=== PATIENT | male | born 1940 | race Caucasian/White ===

== ENCOUNTER 2025-02-11 08:23 | Inpatient (IN) | payer MEDICARE, SELFPAY ==
--- OUTSIDE RECORDS SUMMARY | 2023-10-21 09:30 | XMS_ITS ---
Author Organization [facility] [place] Address [address] [facility] [address] [place] [address] Care Team Providers Care Combatant Diver Qualified Name Role Phone Migration, Provider Unavailable Unavailable REASON FOR VISIT Follow-up Appt Encounters Encounter Location Date Provider Diagnosis [facility], [address] [place] [phone] 10/21/2023 Provider Migration Plan Of Treatment No Information Progress Notes * NATO MIRANDA ODOB:1940 (84 yo M)Acc No.[id number]:10/21/2023 Progress Notes Patient: NATO SHER Provider: Barron Patel :1940 A ge:83 Y S ex:Male Date:10/21/2023 [id number] Subjective: * Chief Complaints: * F ollow-up Appt * Ocular Surgical History: Objective: Vision Examination: * Electronic signature of Prov ider Migration on 02/11/2025 at 09:45 AM EST Sign off status: Pending * Provider: Barron Patel Date: 0 10/21/2023 Generated for Amayai todd/Rakesh/eTransmitting on: 04/13/2024 09:45 AM EST
--- OUTSIDE RECORDS SUMMARY | 2023-11-03 09:00 | XMS_ITS ---
Author Organization [facility] [place] Address [address] [address] [facility] [address] [place] [address] Care Team Providers Care Bpo Specialist Name Role Phone Migration, Provider Unavailable Unavailable REASON FOR VISIT Sick Visit Encounters Encounter Location Date Provider Diagnosis [facility], [address] [address] 11/03/2023 Provider Migration Plan Of Treatment No Information Progress Notes * NATO MIRANDA ODOB:1940 (84 yo M)Acc No.[id number]:11/03/2023 Progress Notes Patient: NATO SHER Provider: Barron Patel :1940 A ge:83 Y S ex:Male Date:11/03/2023 Address:[id number] Subjective: * Chief Complaints: * S ick Visit * Ocular Surgical History: Objective: Vision Examination: * Electronic signature of Prov ider Migration on 02/11/2025 at 09:42 AM EST Sign off status: Pending * Provider: Barron Patel Date: 0 11/03/2023 Generated for Amayai todd/Rakesh/eTransmitting on: 04/13/2024 09:42 AM EST
--- OUTSIDE RECORDS SUMMARY | 2024-01-15 09:30 | XMS_ITS ---
Author Organization [facility] [place] Address [address] [place] [address] Care Team Providers Care Pipe Layer Helper Name Role Phone Migration, Provider Unavailable Unavailable REASON FOR VISIT Pre operative visit Encounters Encounter Location Date Provider Diagnosis [facility], [address] [address] 01/15/2024 Provider Migration Plan Of Treatment No Information Progress Notes * NATO MIRANDA ODOB:1940 (84 yo M)Acc No.[id number]:01/15/2024 Progress Notes Patient: NATO SHER Provider: Barron de la torre Migration :1940 A ge:83 Y S ex:Male Date:01/15/2024 Address:[id number] Subjective: * Chief Complaints: * P re operative visit * Ocular Surgical History: Objective: Vision Examination: * Electronic signature of Prov ider Migration on 02/11/2025 at 09:45 AM EST Sign off status: Pending * Provider: Barron de la torre Migration Date: Generated for Gabo brooks/Rakesh/eTransmitting on: 04/13/2024 09:45 AM EST
--- OUTSIDE RECORDS SUMMARY | 2024-05-13 04:45 | XMS_ITS ---
Author Organization [facility] [place] Address [address] [place] [address] Care Team Providers Care Child Nutrition Assistant Name Role Phone Jack Campos Unavailable [phone] REASON FOR VISIT Pre operative visit Encounters Encounter Location Date Provider Diagnosis [facility], [address] [place] [phone] 05/13/2024 Jack Campos Plan Of Treatment No Information Progress Notes * NATO MIRANDA ODOB:1940 (84 yo M)Acc No.[id number]:05/13/2024 Progress Notes Patient: NATO SHER Provider: Valentina MCKEON :1940 A ge:84 Y S ex:Male Date:05/13/2024 Address:[id number] Subjective: * Chief Complaints: * P re operative visit * Ocular Surgical History: Objective: Vision Examination: * Electronic signature of Thad Campos PA-C on 02/11/2025 at 09:45 AM EST Sign off status: Pending * Provider: Valentina MCKEON Date: 0 05/13/2024 Generated for Gabo brooks/Rakesh/Meenuitting on: 1 04/13/2024 09:45 AM EST
--- OUTSIDE RECORDS SUMMARY | 2024-05-13 04:45 | XMS_ITS ---
Author Organization [facility] [place] Address [address] [facility] [address] [place] [address] Care Team Providers Care Furnace Repairer Name Role Phone Migration, Provider Unavailable Unavailable REASON FOR VISIT Pre operative visit Encounters Encounter Location Date Provider Diagnosis [facility], [address] [place] [phone] 05/13/2024 Provider Migration Plan Of Treatment No Information Progress Notes * NATO MIRANDA ODOB:1940 (84 yo M)Acc No.[id number]:05/13/2024 Progress Notes Patient: NATO SHER Provider: Barron de la torre Migration :1940 A ge:84 Y S ex:Male Date:05/13/2024 Address:[id number] Subjective: * Chief Complaints: * P re operative visit * Ocular Surgical History: Objective: Vision Examination: * Electronic signature of Prov ider Migration on 02/11/2025 at 09:43 AM EST Sign off status: Pending * Provider: Barron osorioder Migration Date: 0 05/13/2024 Generated for Gabo brooks/Rakesh/eTransmitting on: 1 04/13/2024 09:43 AM EST
--- OUTSIDE RECORDS SUMMARY | 2024-05-19 10:00 | XMS_ITS ---
Author Organization [facility] [place] Address [address] [address] [place] [address] Care Team Providers Care Bus Aide Name Role Phone Jack Campos Unavailable [phone] REASON FOR VISIT Pre operative visit Encounters Encounter Location Date Provider Diagnosis [facility], [address] [place] [phone] 05/19/2024 Jack Campos Plan Of Treatment No Information Progress Notes * NATO MIRANDA ODOB:1940 (84 yo M)Acc No.[id number]:05/19/2024 Progress Notes Patient: NATO SHER Provider: Valentina MCKEON :1940 A ge:84 Y S ex:Male Date:05/19/2024 Address:[id number] Subjective: * Chief Complaints: * P re operative visit * Ocular Surgical History: Objective: Vision Examination: * Electronic signature of Thad Campos PA-C on 02/11/2025 at 09:44 AM EST Sign off status: Pending * Provider: Valentina MCKEON Date: 0 05/19/2024 Generated for Gabo brooks/Rakesh/Meenuitting on: 04/13/2024 09:44 AM EST
[2025-02-11] VITALS (8 sets, daily range): BP systolic 139–189; BP diastolic 63–86; PULSE 50–65; RESP 16–18; TEMP 36.4–36.9; O2SAT 92–98; BMI 23.7
--- NOTE | ~2025-02-11 | XR_ITS ---
EXAMINATION: XR CHEST CLINICAL INFORMATION: sob COMPARISON: None available. TECHNIQUE: Frontal view of the chest was obtained. FINDINGS: Pulmonary reticular pattern. Prominence of the interstitial markings with patchy opacities both lungs. No pneumothorax. No pleural effusion. Cardiomediastinal silhouette size is prominent. Single electrode leads likely in the right ventricle. Metallic reservoir in the left upper chest. Multilevel thoracic and upper lumbar spondylosis. XR/XR chest 1V IMPRESSION: Chronic interstitial lung disease with superimposed mild interstitial lung edema versus multifocal pneumonia. Cardiomegaly versus pericardial effusion. Electronically signed by: Campbell Clayton MD 02/11/2025 09:03 AM NICHOLE
--- NOTE | ~2025-02-11 | CT_ITS ---
EXAMINATION: CT ANGIOGRAM CHEST CLINICAL INFORMATION: Shortness of breath. COMPARISON: None available. TECHNIQUE: Multiple axial images were obtained through the chest after the administration of 65 mL of Omnipaque 350 intravenous contrast. Extensive vascular post-processing including two-dimensional and three-dimensional reformatted images were created and reviewed on an independent workstation. SmartPrep technique. This CT examination was performed using dose optimization techniques as appropriate, variously including the following: *Automated exposure control *Adjustment of mA and/or kV according to patient size (this includes techniques or standardized protocols for targeted exams where dose is matched to indication/reason for exam; i.e. extremities or head) *Use of iterative reconstruction technique DLP: 299 mGy-cm FINDINGS: Normal IV contrast enhancement of the main pulmonary artery and its main left and right branches and small subsegmental pulmonary branches without gross intraluminal filling defects. No gross aneurysm, thoracic spine. There is a 4.1 cm diameter of the ascending thoracic aorta. Calcified plaques in the thoracic aorta wall and its main branches. Calcified plaques in the coronary arteries. Bilateral multifocal patchy pulmonary groundglass extending from the perihilar region with a mosaic pattern. Bilateral pleural effusions, moderate volume, right greater than the left side. No pneumothorax. There is a 5 mm noncalcified pulmonary nodule in the periphery of the right upper lung lobe. There is a cluster of patchy pulmonary groundglass nodules in the right upper lung lobe. There is a 3 mm noncalcified subpleural nodule, left upper lung lobe. Peribronchial septal thickening. The left heart chambers are prominent, mostly the left atrium. Mediastinal lymphadenopathy the largest measures 14 mm. No pericardial effusion. There is a single electrode leads in the right ventricle with a metallic reservoir in the anterior left upper chest wall. No pneumomediastinum. No secretions within the airway. No acute rib fractures. Status post stenting infrarenal abdominal aortic aneurysm. Calcified plaques in the abdominal aorta and the included mesenteric arteries. Calcified plaque in the splenic artery. Gallbladder is nondistended. Cystic lesions in the kidneys. Multilevel spondylosis throughout the axial skeleton with the incomplete ankylosis in the anterior aspect of the upper thoracic spine. The thyroid gland is not enlarged. CT/CT angio chest PE protocol IMPRESSION: No acute pulmonary artery emboli. Combination of pulmonary edema with the multifocal pneumonia and bilateral moderate volume pleural effusions. Concerning mitral valve insufficiency resulting in dilated left atrium and left ventricle. 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 Multifocal cystic lesions, kidney. Coronary artery disease and atherosclerosis disease. Fleischner guidelines were followed. Electronically signed by: Campbell Clayton MD 02/11/2025 10:33 AM NICHOLE
--- NOTE | 2025-02-11 07:00 | CA_ITS ---
Transthoracic Echocardiogram Patient (Last, First, Middle): Brian Juan, Gender: Male Date of : 1940 Age: 84 Procedure Date: 02/11/2025 Procedure Type: Transthoracic Echocardiogram Location: ER Height: 187.96 cm Weight: 83.46 kg BSA: 2.10 m2 Heart Rate: 56 bpm BP: 143 / 66 mmHg Quality Control Lead: NICOLE Calderon MD: Tiesha MCKEON Pyridine Operator: Joe Lemons MD Symptoms: CHF Study Quality: Adequate ECG Rhythm: Bradycardia Conclusions: - 1. Mildly dilated left ventricle with mild left ventricular hypertrophy with moderate to severely reduced LV ejection fraction of 30-35% with elevated filling pressures 2. Severely dilated left atrium 3. Early mild aortic stenosis 4. Mildly dilated ascending aorta at 3.8 cm 5. No gross pericardial effusion Findings Left Ventricle Mildly increased left ventricular cavity size. There is mildly increased left ventricular wall thickness. The left ventricular systolic function is moderate to severely decreased. The visually estimated ejection fraction is between 30-35%. Spectral Doppler is indicative of an impaired relaxation filling pattern. Elevated filling pressures. E/E prime ratio is >15, consistent with elevated filling pressures. Wall Motion Rest Echo Findings The inferoseptal wall and inferior wall are hypokinetic. The inferolateral wall is akinetic. All other scored wall segments showed normal motion. Right Ventricle Normal right ventricular cavity size and systolic function. There is an ICD wire seen in the right ventricle. Atria The left atrium is severely dilated. There is no evidence of interatrial shunt. The right atrium is mildly dilated. Aortic Valve The aortic valve was not well visualized. There is no aortic valve stenosis. The peak aortic gradient is 11 mmHg.The mean gradient is 5 mmHg. The aortic valve area is 2.25 cm2. There is no aortic valve regurgitation. Mitral Valve There is mild anterior and posterior mitral leaflet thickening. There is mild mitral valve regurgitation. There is no mitral valve stenosis. Pulmonic Valve The pulmonic valve is likely normal. Tricuspid Valve Likely normal tricuspid valve structure and function. Tricuspid regurgitation envelope is inadequate for calculation of right ventricular systolic pressure. Normal right atrial pressure. Great Vessels The pulmonary artery was not well visualized. There is mild dilatation of the ascending aorta measuring 3.80 cm. Small plaque is seen in the sino tubular ridge. Venous The inferior vena cava is normal in size and collapses greater than 50% with inspiration. Pericardium/Pleural There is no evidence of pericardial effusion. Prior Study Comparison No prior study available for comparison. Measurements 2D Linear Measurements IVSd: 1.52 0.6-0.9/0.6-1.0 cm LVIDd: 6.12 3.9-5.3/4.2-5.9 cm LVIDd Index: 2.91 2.4-3.2/2.2-3.1 cm/m2 LVIDs: 5.46 2.0-3.6 cm LVPWd: 1.24 0.7-1.1 cm LA Diam: 4.00 2.7-3.8/3.0-4.0 cm LAIDs Index: 1.90 1.5-2.3 cm/m2 LV Mass: 489.85 67-162/88-224 g LV Mass Index: 233.26 43-95/49-115 g/m2 LVOT Diam: 2.20 3.0+(-)1.3 cm 2D Systolic Function EF 4C: 31.50 >55% EF 2C: 30.80 >55% EF BiP: 30.00 >55% Mitral Valve MV Pk E: 0.81 MV PK A: 0.78 MV Decel Time: 370.00 E/A: 1.00 E'Lateral: 4.68 E'Medial: 4.03 E/E' Med: 20.20 E/E' Lat: 17.40 PHT: 108.00 MVA PHT: 2.04 Decel Clarke: 2.20 Aortic Valve AoV Pk Honorio: 1.63 AoV Mn Honorio: 1.04 AoV VTI: 0.35 AoV Pk Grad: 11.00 Aov Mn Grad: 5.00 BRANDY Cont.VTI: 2.25 LVOT LVOT Pk Honorio: 0.98 LVOT Mn Honorio: 0.66 LVOT VTI: 0.21 LVOT Pk Grad: 4.00 LVOT Mn Grad: 2.00 LVOT Diam: 2.20 LVOT Area: 3.80 Diastolic Function MV Pk E: 0.81 MV Pk A: 0.78 E/A: 1.00 E'Medial: 4.03 E/E' Med: 20.20 E' Laterial: 4.68 E/E' Lat: 17.40 Right Ventricle TAPSE (mm): 2.39 TVS' Honorio: 16.10 Tricuspid Valve RA Press: 3.00 Great Vessels Aorta Sinus of Valsalva: 3.50 2.0-3.5 cm Ao Asc: 3.80 2.1-3.4 cm Ao Arch: 3.50 Pulmonary Veins Pulm Vein S/D 1.10 Pulmonary Valve PV Pk Honorio: 1.33 Peak PV Grad: 7.00 Updated in Other Vendor System with Status of Final Joe Lemons MD electronically signed on 02/11/2025 3:53:17 PM with status of Final
--- NOTE | 2025-02-11 08:34 | ED.GENADULT ---
HPI - General Adult General Chief complaint: General Medical Stated complaint: Sob Time Seen by Provider: 02/11/25 08:38 Source: patient and EMS Mode of arrival: EMS Limitations: no limitations History of Present Illness ED Provider: MIKE Dunn HPI narrative: This is an 84-year-old male past medical history significant for anxiety presenting to the emergency department with complaints of shortness of breath that started upon waking. Denies associated chest pain. Patient tells me he is not sure why but when he woke up this morning he was having difficulty taking a deep breath. He reports he then started to panic. He does tell me he has a lot of life stressors his is very sick at a long-term and he is now living by himself in his his daughter recently . He tells me he is very upset and he is tearful upon history taking. He denies fevers, chills, recent illness, cough, nausea, vomiting, abdominal pain, headache, vision changes, dizziness and weakness. Related Data Home Medications ?Medication ?Instructions ?Recorded ?Confirmed dorzolamide 22.3 mg-timolol 6.8 1 drp BID 02/11/25 mg/mL eye drops fluticasone propionate 50 1 spray intranasal BID 02/11/25 mcg/actuation nasal spray,suspension lactulose 10 gram/15 mL oral 30 ml PO DAILY 02/11/25 solution latanoprost 0.005 % eye drops 1 drp ophthalmic-Left DAILY 02/11/25 lisinopril 20 mg tablet 20 mg PO BID 02/11/25 metoprolol tartrate 100 mg tablet PO 02/11/25 mexiletine 200 mg capsule 200 mg PO BID 02/11/25 zolpidem 5 mg tablet 5 mg PO BEDTIME PRN Sleep 02/11/25 Allergies Allergy/AdvReac Type Severity Reaction Status Date / Time No Known Allergies Allergy Verified 02/11/25 08:45 Review of Systems Review of Systems: Yes all other systems are reviewed and are negative PMFSH Past Medical History Attestation statement: The following information was validated with the patient. Source: old records reviewed and nursing notes reviewed Social History Social History Advance Directives: Yes Advance Directives Information Provided: Yes Advance Directives on File: No Do you have a plan to hurt others: No Plan Physical Exam ED Exam Exam: Appearance: Alert.? Oriented X3.? No acute distress.? Head: Normocephalic, atraumatic, no step-offs or deformities Eyes: Pupils equal, round and reactive to light.? ENT: Pharynx normal.? Neck: Normal inspection.? Neck supple.? CVS: Normal heart rate and rhythm.? Pulses normal.? Respiratory: No respiratory distress.? Breath sounds normal.? Abdomen: Soft and nontender.? Skin: Skin warm and dry.? Normal skin color.? Normal skin turgor.? Extremities: No lower extremity edema.? No calf ttp. 5/5 strength to bilateral upper and lower extremities Neuro: Oriented X 3.? No motor deficit.? No sensory deficit. CN 2-12 intact Vital Signs: Vital Signs - 24 hr 02/11/25 08:35 02/11/25 10:22 Temperature 98 F Pulse Rate 65 60 Respiratory Rate 18 16 Blood Pressure 189/86 H 161/71 H Pulse Oximetry 95 92 Oxygen Delivery Method Nasal Cannula Room Air BMI result Body Mass Index 23.7 Vital signs stable Course Reevaluation(s) Reevaluation #1: Patient's CBC with leukocytosis 12.6 and left shift 81.0. Chemistry with no acute findings eating intervention. Troponin 61.5, pro BNP elevated 2520.5. Viral testing negative Time: 09:28 Reevaluation #2: Patient's chest x-ray shows chronic interstitial lung disease with superimposed mild interstitial lung edema versus multifocal pneumonia. Since patient had a positive D-dimer a CTA was obtained which showed no acute pulmonary artery emboli. Combination of pulmonary edema with multifocal pneumonia and bilateral moderate volume pleural effusions. Concerning mitral valve insufficiency resulting in dilated left atrium and left ventricle I will give a small amount of Lasix at this time. Time: 10:42 Reevaluation #3: Plan is hospital admission. Time: 10:45 Medications Administered Discontinued Medications Generic Name Dose Route Start Last Admin Trade Name Freq PRN Reason Stop Dose Admin Furosemide 20 mg 02/11/25 10:42 02/11/25 11:08 Furosemide 20 Mg/2 Ml Vial IVPUSH 02/11/25 10:43 20 mg ONCE ONE Administration Protocol Ceftriaxone Sodium 1 gm/ 50 mls @ 100 mls/hr 02/11/25 09:26 02/11/25 10:14 Sodium Chloride IV 02/11/25 09:55 Infused ONCE ONE Infusion Iohexol 100 ml 02/11/25 10:15 02/11/25 10:16 Iohexol 350 Mg/Ml 100 Ml Infus..Btl IV 02/11/25 10:16 65 ml ONCE ONE Administration Lorazepam 1 mg 02/11/25 08:30 02/11/25 08:52 Lorazepam 1 Mg Tablet PO 02/11/25 08:31 1 mg ONCE ONE Administration Medical Decision Making Medical Decision Making [facility] Narrative: 84-year-old male presents with complaints of shortness of breath that started this morning. Then he reports he started to panic. Reports multiple life stressors. Physical exam patient appears anxious otherwise unremarkable History and physical exam concerning for panic attack versus anxiety versus ACS. Will rule out dysrhythmia. Low suspicion for PE. Unlikely pneumonia, bronchitis or viral illness. Plan labs, imaging, viral testing. Will have patient evaluated by care team. Differential Diagnosis Differential Diagnoses: The differential diagnosis associated with the presentation includes (History and physical exam concerning for panic attack versus anxiety versus ACS. Will rule out dysrhythmia. Low suspicion for PE. Unlikely pneumonia, bronchitis or viral illness.) Admission/Observation Consideration of admission/observation: Escalation of care including admission/observation considered Consult Healthcare Provider Management of the patient was discussed with: Grants Director Lab Data [facility] Lab Attestation statement: I reviewed the patient's lab results. 02/11/25 08:48 02/11/25 08:48 Labs: Lab Results 02/11/25 02/11/25 02/11/25 Range/Units 08:48 09:58 10:49 WBC 12.6 H (4.8-10.8) X10*3/uL RBC 3.01 L (4.60-5.80) X10*6/uL Hgb 11.8 L (14.0-18.0) g/dl Hct 35.0 L (42.0-52.0) % MCV 116.3 H (80.0-98.0) fL MCH 39.2 H (27.0-33.0) pg MCHC 33.7 (31.0-36.0) g/dl RDW 17.1 H (11.0-16.0) % Plt Count 281 (160-400) X10*3/uL MPV 9.8 (9.4-12.4) fL Immature Gran % (Auto) 1.3 H (0.0-0.4) % Neut % (Auto) 81.0 H (45-73) % Lymph % (Auto) 6.8 L (20-40) % [place] % (Auto) 9.0 (2-11) % Eos % (Auto) 1.3 (0-4) % Baso % (Auto) 0.6 (0-2) % Lymph # (Auto) 0.9 L (1.2-4.9) X10*3/uL [place] # (Auto) 1.1 (0.1-1.2) X10*3/uL Eos # (Auto) 0.2 (0.0-0.4) X10*3/uL Baso # (Auto) 0.1 (0.0-0.2) X10*3/uL Abs Immat Gran (auto) 0.16 H (0.00-0.03) X10*3/uL Absolute Neuts (auto) 10.2 H (2.0-8.3) x10*3/uL Absolute Nucleated RBC 0.000 (0.0-0.012) X10*3/uL Nucleated RBC % (auto) 0.0 (0.0-0.2) /100WBC Smear Tech's Comments VERIFIED D-Dimer High Sensitivty 350 NG/ML Sodium 143 (135-145) mmol/L Potassium 4.6 (3.3-5.1) mmol/L Chloride 111 H (96-108) mmol/L Carbon Dioxide 25 (22-29) mmol/L Anion Gap 12 (12-20) BUN 18 H (9-16) mg/dL Creatinine 1.19 (0.5-1.4) mg/dL Estim Creat Clear Calc 53.7 Estimated GFR 58 Random Glucose 141 H (60-115) mg/dL Lactic Acid 1.6 (0.5-2.0) mmol/L Calcium 8.9 (8.4-10.2) mg/dL Magnesium 1.9 (1.6-2.6) mg/dL Total Bilirubin 0.8 (0.0-1.0) mg/dL AST 27 (5-37) U/L ALT 25 (0-40) U/L Alkaline Phosphatase 69 (39-117) U/L Troponin I High Sens 61.5 H 56.1 H (<3.5-35.0) ng/L NT-Pro-B Natriuret Pep 2520.5 H (<300) pg/mL Total Protein 6.6 (6.5-8.0) g/dL Albumin 4.4 (3.5-5.0) g/dL COVID-19 (HALEY) Negative (Negative) COVID-19 Clin Com See Note Influenza Type A (EMMETT) Negative (Negative) Influenza Type B (EMMETT) Negative (Negative) Influenza A & B Note See Note Independent Interpretation I performed an independent interpretation of an: EKG (Ventricular rate of 58 sinus rhythm with inverted T-waves in the inferior leads, left ventricular hypertrophy noted. No STEMI) and Plain X-Ray Radiology Impression Discussion of test interpretation with radiology: I have reviewed the radiologist's reading. Chronic Conditions Patient?s care impacted by: Other (See HPI and) Social Determinants Patient?s care significantly limited by Social Determinants of Health including: Other Social Determinant of Health Critical Care Time Critical Care Time Critical Care Time: Yes Total Critical Care Time: 35 Attestation: I attest to this time spent taking care of the patient, obtaining history, physical, reviewing labs, imaging, treatment of patients condition +/- specialist/hospitalist consult +/- procedure Discharge Plan Discharge Clinical Impression: Pneumonia, Shortness of breath, Grief at loss of child, Acute depression, CHF (congestive heart failure) Patient Disposition: Admitted As Inpatient
[2025-02-11 08:58] LABS: Hematocrit 35.0 % (42.0-52.0); Hemoglobin 11.8 g/dl (14.0-18.0); Imm Gran Abs Auto 0.16 X10*3/uL (0.00-0.03); Imm Gran Pct Auto 1.3 % (0.0-0.4); Lymphocytes Absolute Auto 0.9 X10*3/uL (1.2-4.9); Mean Corpuscular HGB Conc 33.7 g/dl (31.0-36.0); Mean Corpuscular Hemoglobin 39.2 pg (27.0-33.0); NRBC Abs Auto 0.000 X10*3/uL (0.0-0.012); NRBC Pct Auto 0.0 /100WBC (0.0-0.2); Platelet Count 281 X10*3/uL (160-400); Red Blood Count 3.01 X10*6/uL (4.60-5.80); White Blood Count 12.6 X10*3/uL (4.8-10.8)
[2025-02-11 09:00] LABS: Mean Corpuscular Volume 116.3 fL (80.0-98.0)
[2025-02-11 09:02] LABS: MANUAL DIFF FLAG SCAN
[2025-02-11 09:12] LABS: Alanine Aminotransferase 25 U/L (0-40); Albumin Level 4.4 g/dL (3.5-5.0); Alkaline Phosphatase 69 U/L (39-117); Anion Gap 12 (12-20); Aspartate Amino Transferase 27 U/L (5-37); Blood Urea Nitrogen 18 mg/dL (9-16); Calcium 8.9 mg/dL (8.4-10.2); Carbon Dioxide 25 mmol/L (22-29); Chloride 111 mmol/L (96-108); Creatinine Clr Calc Pharmacy 53.7; D Dimer High Sensitivity 350 NG/ML; Estimated Glomerular Filt Rate 58; Magnesium 1.9 mg/dL (1.6-2.6); Potassium 4.6 mmol/L (3.3-5.1); Sodium 143 mmol/L (135-145); Total Protein 6.6 g/dL (6.5-8.0)
[2025-02-11 09:13] LABS: COVID-19 Test Negative (Negative); IDNOW Serial# 55D5AD1C; IDNOW Serial# 58CA691E; Influenza B2 Negative (Negative)
[2025-02-11 09:16] LABS: Troponin-I High Sensitivity 61.5 ng/L (<3.5-35.0)
--- NOTE | 2025-02-11 09:28 | ECG_ITS ---
Test Reason : SOB Blood Pressure : */* mmHG Vent. Rate : 58 BPM Atrial Rate : 58 BPM P-R Int : 208 ms QRS Dur : 124 ms QT Int : 424 ms P-R-T Axes : 110 -11 155 degrees QTcB Int : 416 ms Sinus bradycardia Left ventricular hypertrophy with QRS widening and repolarization abnormality ( Sokolow-Maher ) Possible Inferior infarct , age undetermined Abnormal ECG No previous ECGs available Referred By: Clarisa Dunn Electronically Signed By: NEVILLE MARTINEZ MD
--- OUTSIDE RECORDS SUMMARY | 2025-02-11 09:42 | XMS_ITS | Clinical Summary ---
Author Organization [facility] Address [address] [place] [phone] Phone Care Team Providers Care Pipe Straightener Name Role Phone Greyson Francois MD Primary Care Provider + Social History Tobacco Use Types Packs/Day Years Used Date Smoking Tobacco: Never Assessed Education Answer Date Recorded Are you interested in more education? Not on diaz e 07/26/2022 Are you concerned about learning? Not on file 07/26/2022 No 07/26/2022 No 07/26/2022 Digital Access Answer Date Recorded No 08/27/2022 No 08/27/2022 No 08/27/2022 Reliable internet access at home? Not on file 08/27/2022 Device with a working camera? Not on file Sex and Gender Information Value Date Recorded Sex Assigned at Not on file Legal Sex Male 11:30 AM EST Gender Identity Not on file Sexual Orientation Not on file Last Filed Vital Signs Vital Sign Reading Time Taken Comments Blood Pressure 142/90 06/16/2017 1:19 PM EDT Pulse - - Temperature - - Respiratory Rate - - Oxygen Saturation - - Inhaled Oxygen Concentration - - Weight - - Height - - Body Mass Index - - Plan of Treatment Upcoming Encounters Date Type Department Care Team ([facility] Contact Info) Description 03/14/2025 3:00 PM EST Office Visit [facility] [address] [place] [address] Elodia Carbajal MD [address], [address] [place] [address] [email or web address] Maintenance Due Date Last Done Comments Adult Td,Tdap Booster 1940 DEPRESSION SCREENING 1952 PNEUMOCOCCAL VACCINES (50+ years) (1 of 1 - PCV) 1990 ZOSTER VACCINES (1 of 2) 1990 RSV VACCINE (1 - 1-dose 75+ series) 2015 INFLUENZA VACCINE (#1) 2024 COVID-19 VACCINE (3 - 2024-2 6 season) 2024 05/30/2020, 05/04/2020 HEPATITIS A VACCINES Aged Out No long er eligible based on patient's age to complete this topic HIB VACCINES Aged Out No longer eligi ble based on patient's age to complete this topic IPV VACCINES Aged Out No longer eligi ble based on patient's age to complete this topic MENINGOCOCCAL VACCINES (ACWY) Aged Out No longer eligible based on patient's age to complete this topic MENINGOCOCCAL VACCINES (B) Aged Out N o longer eligible based on patient's age to complete this topic Medical Devices Not on file Insurance [employer] RE[employer] Care Teams Pipe Straightener Relationship Specialty Start Date End Date Greyson Francois MD PCP - General 04/28/17 Additional Source Comments The information contained in this document represents components of the legal health record. It is not the complete legal health record.[facility]
--- OUTSIDE RECORDS SUMMARY | 2025-02-11 09:43 | XMS_ITS | Clinical Summary ---
Author Organization [address] [place] [address] [place] [phone] Phone Care Team Providers Care Obstetrician Name Role Phone Greyson Francois MD Primary Care Provider [phone] Allergies No known active allergies Medications mexiletine (MEXITIL) 200 mg capsule 05/15/2022 Active nitroglycerin (NITROSTAT) 0.4 mg SL tablet 05/28/2022 Active zolpidem (AMBIEN) 5 mg tablet 05/15/2022 Active aspirin 81 mg chewable tablet Daily Acti ve clonazePAM (KlonoPIN) 0.5 mg tablet 1/2-1 po qhs prn insomnia 03/14/2015 Active metoprolol tartrate (LOPRESSOR) 50 mg tablet Take 1 Tablet by mouth 2 times daily. 100mg am 50mg at night 12/14/2014 Active lisinopriL (PRINIVIL,ZESTR IL) 20 mg tablet Take 1 Tablet by mouth 2 times daily. 12/14/2014 Active atorvastatin (LIPITOR) 80 mg tablet Take 1 Tab by mouth daily. 12/14/2014 Active lactulose (CHRONULAC) solution Take 30 mL (20 g total) by mouth 2 (two) times a day. 2700 mL 1 01/04/2025 Active Active Problems Problem Noted Date Diagnosed Date Anxiety state 12/14/2014 Encounters Date Type Department Care Team Description 12/17/2024 Telephone Gastroenterology [facility] [address] [facility] [address] [place] [address] Faina Huynh MA 12/10/2024 12:41 PM EDT - 12/10/2024 11:59 PM EDT Hospital Encounter [facility] CT Scan [address] [place] [phone] Constipation, unspecified constipation type; Weight loss Discharge Disposition: Home or Self Care 12/09/2024 3:20 PM EDT Lab Draw Station - [address] [facility] [place] [phone] Infrarenal abdominal aortic aneurysm (AAA) without rupture (CMS/[facility] V24); Status post endovascular aneurysm repair (EVAR); Anemia, unspecified type 11/16/2024 Telephone Gastroenterology [facility] [address] [place] [phone] Marti Palomo PA 11/16/2024 Telephone Gastroenterology [facility] [address] [facility] [address] [place] [phone] Marti Palomo PA 11/15/2024 3:00 PM EDT Lab Draw Station - [address] [facility] [address] [facility] [address] [place] [phone] Constipation, unspecified constipation type; Weight loss 11/15/2024 2:00 PM EDT Office Visit Gastroenterology [facility] [address] [facility] [address] [place] [phone] Marti Palomo PA Constipation, unspecified constipation type; Weight loss 11/11/2024 Telephone Vascular Surgery - [place] [address] [place] [phone] Jair Canseco MD from Last 3 Months Surgical History Surgery Date Site/Laterality Comments OTHER SURGICAL HISTORY 07/19/2022 PROCEDURE: OR VASCULAR EMBOLIZATION OR OCCLUSION ARTERIAL RS&I OTHER SURGICAL HISTORY 07/19/2022 PROCEDURE: ULTRASOUND GUIDANCE FOR VASCULAR AC OTHER SURGICAL HISTORY 07/24/2022 Left PROCEDURE: OR OPN ILIAC ART EXPOS PROSTH/ILIAC OCCLS EVASC UNI OTHER SURGICAL HISTORY 07/24/2022 PROCEDURE: OR EVASC RPR DPLMNT [id number] OTHER SURGICAL HISTORY 07/24/2022 Right PROCEDURE: OR PLACEMENT XTN PROSTH FOR ENDOVASCULAR RPR OTHER SURGICAL HISTORY 07/24/2022 PROCEDURE: OR OPN FEM ART EXPOS DLVR EVASC PROSTH UNI Social History Tobacco Use Types Packs/Day Years Used Date Smoking Tobacco: Former Smokeless Tobacco: Never Alcohol Use Standard Drinks/Week Comments No 0 (1 standard drink = 0.6 oz pur e alcohol) Sex and Gender Information Value Date Recorded Sex Assigned at Male 05/13/2024 2:42 PM EST Legal Sex Male 11:46 PM EST Gender Identity Male 05/13/2024 2:42 PM EST Sexual Orientation Straight 05/13/2024 2: 42 PM EST Obstetrics History Last Filed Vital Signs Vital Sign Reading Time Taken Comments Blood Pressure 120/60 11/15/2024 2:24 PM EDT Pulse 72 11/05/2024 8:40 AM EDT Temperature 36.6 C (97.9 F) 06/18/2024 3:05 PM EDT Respiratory Rate 16 11/05/2024 8:40 AM EDT Oxygen Saturation 95% 06/18/2024 3:58 PM EDT Inhaled Oxygen Concentration - - Weight 79.8 kg (176 lb) 11/15/2024 2:24 PM EDT Height 182.9 cm (6') 11/15/2024 2:24 PM EDT Body Mass Index 23.87 11/15/2024 2:24 PM EDT Plan of Treatment Upcoming Encounters Date Type Department Care Team (Late st Contact Info) Description 03/02/2025 11:10 AM EST Office Visit Gastroenterology - [address] [facility] 299 [facility] [address] [place] [phone] Marti Palomo PA [address] [facility] [address] [place] [address] 11/07/2025 10:30 AM EDT Office Visit Vascular Surgery - [place] [address] [place] [phone] Jair Canseco MD [address] [place] [phone] Health Maintenance Due Date Last Done Comments DTaP,Tdap,and Td Vaccines (1 - Tdap) 1959 Pneumococcal Vaccine: 50+ Years (1 of 1 - PCV) 1990 RSV Immunization Adult Patients (1 - 1-dose 75+ series) 2015 Falls Risk Assessment 04/29/2023 Medicare Annual Wellness Visit 04/29/2023 Social Influencers of Health Screening 04/29/2023 Depression Screening 03/31/2024 COVID-19 Vaccine ( season) 2024 12/11/2023, 02/04/2023, 01/14/2022, Additional history exists Influenza Vaccine (#1) 2024 01/14/2022 Cholesterol Screening (Lipid Panel) 05/13/2029 05/13/2024 Zoster Vaccines Completed 08/07/2021, 05/19/2021 HIB Vaccines Aged Out No longer eligi ble based on patient's age to complete this topic HPV Vaccines Aged Out No longer eligi ble based on patient's age to complete this topic Hepatitis A Vaccines Aged Out No long er eligible based on patient's age to complete this topic Hepatitis B Vaccines Aged Out No long er eligible based on patient's age to complete this topic IPV Vaccines Aged Out No longer eligi ble based on patient's age to complete this topic MMR Vaccines Aged Out No longer eligi ble based on patient's age to complete this topic Meningococcal ACWY Vaccine Aged Out N o longer eligible based on patient's age to complete this topic Meningococcal B Vaccine Aged Out No l onger eligible based on patient's age to complete this topic RSV Immunization Patients Under 20 months Aged Out No longer eligible based on patient's age to complete this topic Varicella Vaccines Aged Out No longer eligible based on patient's age to complete this topic Procedures Procedure Name Priority Date/Time Associated Diagnosis Comments CT ABDOMEN PELVIS W CONTRAST Routine 12/10/2024 1:21 PM EDT Constipation, unspecified constipation type Weight loss FERRITIN Routine 12/09/2024 3:20 PM EDT Anemia, unspecified type IRON AND TIBC Routine 12/09/2024 3:20 PM EDT Anemia, unspecified type CREATININE, SERUM Routine 12/09/2024 3:2 0 PM EDT Infrarenal abdominal aortic aneurysm (AAA) without rupture (CMS/HCC V24) Status post endovascular aneurysm repair (EVAR) BUN Routine 12/09/2024 3:20 PM EDT Infrarenal abdominal aortic aneurysm (AAA) without rupture (CMS/HCC V24) Status post endovascular aneurysm repair (EVAR) CBC WITH AUTO DIFFERENTIAL Routine 11/15/2024 2:57 PM EDT Constipation, unspecified constipation type Weight loss CBC AND DIFFERENTIAL Routine 11/15/2024 2:57 PM EDT Constipation, unspecified constipation type Weight loss COMPREHENSIVE METABOLIC PANEL Routine 11/15/2024 2:57 PM EDT Constipation, unspecified constipation type Weight loss C-REACTIVE PROTEIN Routine 11/15/2024 2: 57 PM EDT Constipation, unspecified constipation type Weight loss THYROID STIMULATING HORMONE Routine 11/15/2024 2:57 PM EDT Constipation, unspecified constipation type Weight loss LIPID PANEL WITH REFLEX TO DIRECT LDL Routine 05/13/2024 12:00 AM EST Essential (primary) hypertension Cardiac arrhythmia, unspecified Generalized anxiety disorder Encounter for screening for malignant neoplasm of prostate Impaired fasting glucose from Last 3 Months or Most Recently Relevant to Health Maintenance Results * CT Abdomen Pelvis w Contrast (12/10/2024 1:21 PM EDT) Anatomical Region Laterality Modality Body Computed Tomogra phy 12/13/2024 6:39 PM EDT Impressions 12/13/2024 6:44 PM EDT NO ACUTE ABNORMALITY. -------- FINAL REPORT -------- Dictated By: Cheko Porter Dictated Date: 12/13/2024 18:39 ET Assigned Physician: Cheko Porter Reviewed and Electronically Signed By: Cheko Porter Signed Date: 12/13/2024 18:44 ET Workstation ID: [id number] Transcribed By: Self Edit Transcribed Date: 12/13/2024 18:39 ET Narrative 12/13/2024 6:44 PM EDT PROCEDURE: CT ABDOMEN/PELVIS WITH CONTRAST INDICATION: wt loss, chnage of BMs, constipation TECHNIQUE: CT of the abdomen and pelvis following the intravenous administration of 90cc Isovue 370. Multiplanar reformats. The examination was performed utilizing dose reduction techniques. Total DLP 819 COMPARISON: No priors available. FINDINGS: LOWER THORAX: Lung bases are clear. Cardiomegaly and coronary artery calcifications. Pacemaker leads. Distal esophageal thickening. HEPATOBILIARY: No focal liver lesions. No cholelithiasis or biliary duct dilatation. SPLEEN: No focal lesion. PANCREAS: No focal mass or ductal dilatation. ADRENALS: No nodules. KIDNEYS/URETERS: Duplicated right renal collecting system. Left renal cyst. PELVIC ORGANS/BLADDER: Mild prostatomegaly. Bladder is unremarkable. PERITONEUM / RETROPERITONEUM: Subcentimeter retroperitoneal nodes as seen previously. VESSELS: EVAR. No visible endoleak. Prior embolization of the right hypogastric artery. GI TRACT: Prominent sigmoid diverticulosis without CT evidence of acutely inflamed diverticulum. Early diverticulitis may be radiographically occult. No small bowel obstruction. Normal appendix. BONES AND SOFT TISSUES: Scattered degenerative changes seen throughout the bones. Small fat-containing inguinal hernias. Procedure Note Cheko Porter MD - 12/13/2024 PROCEDURE: CT ABDOMEN/PELVIS WITH CONTRAST INDICATION: wt loss, chnage of BMs, constipation TECHNIQUE: CT of the abdomen and pelvis following the intravenousadministration of 90cc Isovue 370. Multiplanar reformats. The examinationwas performed utilizing dose reduction techniques. Total DLP 819 COMPARISON: No priors available. FINDINGS: LOWER THORAX: Lung bases are clear. Cardiomegaly and coronary arterycalcifications. Pacemaker leads. Distal esophageal thickening. HEPATOBILIARY: No focal liver lesions. No cholelithiasis or biliary ductdilatation. SPLEEN: No focal lesion. PANCREAS: No focal mass or ductal dilatation. ADRENALS: No nodules. KIDNEYS/URETERS: Duplicated right renal collecting system. Left renalcyst. PELVIC ORGANS/BLADDER: Mild prostatomegaly. Bladder is unremarkable. PERITONEUM / RETROPERITONEUM: Subcentimeter retroperitoneal nodes as seenpreviously. VESSELS: EVAR. No visible endoleak. Prior embolization of the righthypogastric artery. GI TRACT: Prominent sigmoid diverticulosis without CT evidence of acutelyinflamed diverticulum. Early diverticulitis may be radiographicallyoccult. No small bowel obstruction. Normal appendix. BONES AND SOFT TISSUES: Scattered degenerative changes seen throughout thebones. Small fat-containing inguinal hernias. IMPRESSION: NO ACUTE ABNORMALITY. -------- FINAL REPORT -------- Dictated By: Cheko Porter Dictated Date: 12/13/2024 18:39 ET Assigned Physician: Cheko Porter Reviewed and Electronically Signed By: Cheko Porter Signed Date: 12/13/2024 18:44 ET Workstation ID: [id number] Transcribed By: Self Edit Transcribed Date: 12/13/2024 18:39 ET us Marti MCKEON IMG CT PROCEDURES Final Resul t * Iron and TIBC (12/09/2024 3:20 PM EDT) Iron 137 50 - 160 mcg/dL LAB CHEMISTRY METHOD 12/09/2024 4:48 PM EDT [facility] TIBC 313 250 - 450 mcg/dL LAB CHEMISTRY METHOD 12/09/2024 4:48 PM EDT [facility] Iron Saturation 44 20 - 50 % LAB CHEMISTRY METHOD 12/09/2024 4:48 PM EDT [facility] Blood Venous blood specimen / Unknown Venipuncture / Unknown 12/09/2024 3:20 PM EDT 12/09/2024 4:07 PM EDT us Marti MCKEON LAB BLOOD ORDERABLES Final Re sult [facility] [address] [place] [address], * (ABNORMAL) Creatinine (12/09/2024 3:20 PM EDT) Creatinine 1.27 0.70 - 1.30 mg/dL LAB CHEMISTRY METHOD 12/09/2024 4:48 PM EDT [facility] eGFR 56(L) >=60 mL/min/1. 73m2 LAB CHEMISTRY METHOD 12/09/2024 4:48 PM EDT [facility] Comment:Calculation based on the Chronic Kidney Disease Epidemiology Collaboration (CKD-EPI) equation refit without adjustment for race. Blood Venous blood specimen / Unknown Venipuncture / Unknown 12/09/2024 3:20 PM EDT 12/09/2024 4:07 PM EDT us Jair Canseco MD LAB BLOOD ORDERABLES Final Resu lt [facility] [address] [place] [address], [place] [phone] * BUN (12/09/2024 3:20 PM EDT) BUN 25 5 - 25 mg/dL LAB CHEMISTRY METHOD 12/09/2024 4:48 PM EDT [facility] Blood Venous blood specimen / Unknown Venipuncture / Unknown 12/09/2024 3:20 PM EDT 12/09/2024 4:07 PM EDT us Jair Canseco MD LAB BLOOD ORDERABLES Final Resu lt [facility] [address] [place] [address], [place] [phone] * Ferritin (12/09/2024 3:20 PM EDT) Ferritin 140 26 - 388 ng/mL LAB CHEMISTRY METHOD 12/09/2024 4:49 PM EDT [facility] Blood Venous blood specimen / Unknown Venipuncture / Unknown 12/09/2024 3:20 PM EDT 12/09/2024 4:07 PM EDT us Marti MCKEON LAB BLOOD ORDERABLES Final Re sult [facility] [address] [place] [address], * (ABNORMAL) CBC auto differential (11/15/2024 2:57 PM EDT) WBC 9.3 4.8 - 10.8 K/mcL LAB HEMETOLOGY METHOD 11/15/2024 6:42 PM EDT [facility] RBC 2.90(L) 4.50 - 5.50 M/mcL LAB HEMETOLOGY METHOD 11/15/2024 6:42 PM EDT [facility] Hemoglobin 11.1(L) 13.5 - 17.5 g/dL LAB HEMETOLOGY METHOD 11/15/2024 6:42 PM EDT [facility] Hematocrit 34.0(L) 42.0 - 54.0 % LAB HEMETOLOGY METHOD 11/15/2024 6:42 PM EDT [facility] MCV 117.6(H) 79.0 - 98.0 FL LAB HEMETOLOGY METHOD 11/15/2024 6:42 PM EDT [facility] MCH 38.4(H) 27.0 - 32.0 pcg LAB HEMETOLOGY METHOD 11/15/2024 6:42 PM EDT [facility] MCHC 32.6 32.0 - 37.0 g/dL LAB HEMETOLOGY METHOD 11/15/2024 6:42 PM EDT [facility] RDW 17.5(H) 11.0 - 15.0 % LAB HEMETOLOGY METHOD 11/15/2024 6:42 PM EDT [facility] Platelets 286 130 - 400 K/mcL LAB HEMETOLOGY METHOD 11/15/2024 6:42 PM EDT [facility] MPV 10.9 7.0 - 11.0 FL LAB HEMETOLOGY METHOD 11/15/2024 6:42 PM EDT [facility] NRBC 0.0 <1.0 % LAB HEMETOLOGY METHOD 11/15/2024 6:[facility] NRBC Absolute 0.00 <0.10 K/mcL LAB HEMETOLOGY METHOD 11/15/2024 6:42 [facility] Neutrophils Relative 70.6 % LAB HEMETOLOGY METHOD 11/15/2024 6:42 [facility] Lymphocytes Relative 13.0 % LAB HEMETOLOGY METHOD 11/15/2024 6:42 PM [facility] Monocytes Relative 12.1 % LAB HEMETOLOGY METHOD 11/15/2024 6:42 PM [facility] Eosinophils Relative 2.1 % LAB HEMETOLOGY METHOD 11/15/2024 6:42 PM [facility] Basophils Relative 1.0 % LAB HEMETOLOGY METHOD 11/15/2024 6:42 PM [facility] Immature Granulocytes Relative 1.2 % LAB HEMETOLOGY METHOD 11/15/2024 6:42 PM [facility] Neutrophils Absolute 6.58 1.50 - 7.00 K/mcL LAB HEMETOLOGY METHOD 11/15/2024 6:42 PM [facility] Lymphocytes Absolute 1.21 1.00 - 5.00 K/mcL LAB HEMETOLOGY METHOD 11/15/2024 6:42 PM [facility] Monocytes Absolute 1.13(H) 0.20 - 1.00 K/mcL LAB HEMETOLOGY METHOD 11/15/2024 6:42 PM [facility] Eosinophils Absolute 0.20 0.00 - 0.50 K/mcL LAB HEMETOLOGY METHOD 11/15/2024 6:42 PM EDT [facility] Basophils Absolute 0.09 0.00 - 0.20 K/mcL LAB HEMETOLOGY METHOD 11/15/2024 6:42 PM EDT [facility] Immature Granulocytes Absolute 0.11(H) 0.00 - 0.03 K/[facility] LAB HEMETOLOGY METHOD 11/15/2024 6:42 PM EDT [facility] Blood Venous blood specimen / Unknown Venipuncture / Unknown 11/15/2024 2:57 PM EDT 11/15/2024 2:57 PM EDT Marti MCKEON LAB BLOOD ORDERABLES Final Re sult Performing Organization Address [facility]/ZIP Co de Phone Number [facility] [address] [place] [address], [place] [phone] * C-reactive protein (11/15/2024 2:57 PM EDT) C-Reactive Protein <0.29 <=0.50 mg/dL LAB CHEMISTRY METHOD 11/15/2024 6:51 PM EDT [facility] Blood Venous blood specimen / Unknown Venipuncture / Unknown 11/15/2024 2:57 PM EDT 11/15/2024 2:57 PM EDT Marti MCKEON LAB BLOOD ORDERABLES Final Re sult Performing Organization Address City/[facility]/ZIP Co de Phone Number [facility] [address] [place] [address], [place] [phone] * Thyroid stimulating hormone (11/15/2024 2:57 PM EDT) TSH 1.47 0.40 - 4.00 mcIU/mL LAB CHEMISTRY METHOD 11/15/2024 7:33 PM EDT [facility] Blood Venous blood specimen / Unknown Venipuncture / Unknown 11/15/2024 2:57 PM EDT 11/15/2024 2:57 PM EDT us Marti MCKEON LAB BLOOD ORDERABLES Final Re sult [facility] [address] [place] [address], [place] [phone] * (ABNORMAL) Comprehensive metabolic panel (11/15/2024 2:57 PM EDT) Pathologist [facility] Sodium 140 133 - 145 mmol/L LAB CHEMISTRY METHOD 11/15/2024 6:56 PM T [facility] Potassium 4.4 3.5 - 5.5 mmol/L LAB CHEMISTRY METHOD 11/15/2024 6:56 PM [facility] Chloride 110 96 - 110 mmol/L LAB CHEMISTRY METHOD 11/15/2024 6:56 PM [facility] CO2 28 21 - 32 mmol/L LAB CHEMISTRY METHOD 11/15/2024 6:56 PM [facility] Anion Gap 2(L) 3 - 11 LAB CHEMISTRY METHOD 11/15/2024 6:56 PM [facility] Glucose 87 70 - 100 mg/dL LAB CHEMISTRY METHOD 11/15/2024 6:56 PM [facility] BUN 19 5 - 25 mg/dL LAB CHEMISTRY METHOD 11/15/2024 6:56 PM [facility] Creatinine 1.11 0.70 - 1.30 mg/dL LAB CHEMISTRY METHOD 11/15/2024 6:56 PM [facility] eGFR 65 >=60 mL/min/1. 73m2 LAB CHEMISTRY METHOD 11/15/2024 6:56 PM [facility] Comment:Calculation based on the Chronic Kidney Disease Epidemiology Collaboration (CKD-EPI) equation refit without adjustment for race. BUN/Creatinine Ratio 17.1 LAB CHEMISTRY METHOD 11/15/2024 6:56 PM [facility] Calcium 8.6 8.5 - 10.5 mg/dL LAB CHEMISTRY METHOD 11/15/2024 6:56 PM EDT [facility] AST (SGOT) 16 10 - 42 unit/L LAB CHEMISTRY METHOD 11/15/2024 6:56 PM EDT [facility] ALT (SGPT) 24 10 - 60 unit/L LAB CHEMISTRY METHOD 11/15/2024 6:56 PM EDT [facility] Alkaline Phosphatase 71 42 - 121 unit/L LAB CHEMISTRY METHOD 11/15/2024 6:56 PM EDT [facility] Total Protein 6.6 6.0 - 8.0 g/dL LAB CHEMISTRY METHOD 11/15/2024 6:56 PM [facility] Albumin 3.9 3.2 - 5.0 g/dL LAB CHEMISTRY METHOD 11/15/2024 6:56 PM EDT [facility] Total Bilirubin 0.5 0.0 - 1.4 mg/dL LAB CHEMISTRY METHOD 11/15/2024 6:56 PM EDT [facility] Blood Venous blood specimen / Unknown Venipuncture / Unknown 11/15/2024 2:57 PM EDT 11/15/2024 2:57 PM EDT us Marti MCKEON LAB BLOOD ORDERABLES Final Re sult [facility] [address] [place] [address], * (ABNORMAL) Lipid panel with reflex to direct LDL (05/13/2024 12:00 AM EST) Cholesterol 69 0 - 200 mg/dL LAB CHEMISTRY METHOD 05/13/2024 6:55 PM EST [facility] Triglycerides 81 0 - 150 mg/dL LAB CHEMISTRY METHOD 05/13/2024 6:55 PM EST [facility] HDL 30(L) >=40 mg/dL LAB CHEMISTRY METHOD 05/13/2024 6:55 PM EST [facility] LDL Calculated 23 0 - 100 mg/dL LAB CHEMISTRY METHOD 05/13/2024 6:55 PM EST [facility] VLDL Cholesterol Jose 16.2 mg/dL LAB CHEMISTRY METHOD 05/13/2024 6:55 PM EST [facility] Non HDL Chol. (LDL+VLDL) 39 <145 mg/dL LAB CHEMISTRY METHOD 05/13/2024 6:55 PM EST [facility] Chol/HDL Ratio 2.3 0.0 - 4.4 LAB CHEMISTRY METHOD 05/13/2024 6:55 PM [facility] Blood Venous blood specimen / Unknown 05/13/2024 05/13/2024 6:05 PM EST Jack MCKEON LAB BLOOD ORDERABLES Final Res ult [facility] [address] [place] [address], from Last 3 Months or Most Recently Relevant to Health Maintenance Insurance [employer] Care Teams Obstetrician Relationship Specialty Start Date End Date Greyson Francois MD [address] [phone] PCP - General 12/14/14
--- OUTSIDE RECORDS SUMMARY | 2025-02-11 09:44 | XMS_ITS | Encounter Summary ---
Author Organization [facility] Address [address] [facility] [place] [address] Phone Care Team Providers Care Admin Prog Coord Name Role Phone Greyson Francois MD Primary Care Provider + Encounter Details Date Type Department Care Team (Late st Contact Info) Description 04/28/2017 Ancillary Orders [facility] [address], [address] [place] [address] Greyson Sabillon DO [address] [facility] [address] [place] [address] [email or web address] Social History Tobacco Use Types Packs/Day Years Used Date Smoking Tobacco: Never Assessed Sex and Gender Information Value Date Recorded Sex Assigned at Not on file Legal Sex Male 11:30 AM EST Gender Identity Not on file Sexual Orientation Not on file documented as of this encounter Plan of Treatment Upcoming Encounters Date Type Department Care Team (Late st Contact Info) Description 03/14/2025 3:00 PM EST Office Visit [facility] Medicine [address] [place] [address] Elodia Carbajal MD [address] [facility] [address] [place] [address] [email or web address] documented as of this encounter Visit Diagnoses Not on filedocumented in this encounter Care Teams Admin Prog Coord Relationship Specialty Start Date End Date Greyson Francois MD PCP - General 04/28/17 documented as of this encounter Additional Source Comments The information contained in this document represents components of the legal health record. It is not the complete legal health record.[facility]
--- OUTSIDE RECORDS SUMMARY | 2025-02-11 09:44 | XMS_ITS | Encounter Summary ---
Author Organization [facility] Address [address] [facility] [address] [place] [id number] Phone Care Team Providers Care Project Construction Manager Name Role Phone Greyson Francois MD Primary Care Provider + Reason for Referral * MRI/CAT Scan - Closed Specialty Diagnoses / Procedures Referred By Gin newton Referred To Contact Radiology Diagnoses Arrhythmogenic right ventricular tachycardia Procedures NC Myocardial Perfusion Pharmacologic Stress Multiple Adolfo Otto MD Phone: tel: [email or web address] Referral ID Status Reason Start Date Expiration Date Visits Re quested Visits Authorized [id number] Closed 04/28/2017 04/28/2018 1 1 Encounter Details Date Type Department Care Team (Latest Contact Info) Description 04/28/2017 Ancillary Orders [facility] [address] [facility] 3rd Floor, [address] [place] [address] Adolfo Otto MD [address] [place] [id number] [email or web address] Arrhythmogenic right ventricular tachycardia Social History Tobacco Use Types Packs/Day Years [...] Description 03/14/2025 3:00 PM EST Office Visit [facility] [address] [place] [address] Elodia Carbajal MD [address] [place] [address], [address] JUSTIN Garcia [address] [email or web address] documented as of this encounter Results * NC Myocardial Perfusion Pharmacologic Stress Multiple (07/11/2017 7:49 AM EDT) Nuc Stress EF 33 % LV Systolic Volume 155 mL LV Diastolic Volume 235 mL EF 34 % LV Systolic Volume Index 164 mL/m2 LV Diastolic Volume Index 243 mL/m2 Anatomical Region Laterality Modality Heart, Vascular Ultrasound Narrative 07/11/2017 7:50 AM EDT Compared to prior (Date of prior study: 07/30/2007) Abnormal study There is a large severe defect involving the inferior and inferior lateral wall consistent with a transmural inferior and inferior lateral infarct. There is only a minimal amount of mariah-infarct ischemia. Severe LV dilation with severe LV dysfunction EF 33% with inferior and inferior lateral akinesis. Compared to study from July 2007, no significant change noted. Resting ECG ECG shows a paced rhythm. Stress Test Result REGADENOSON Exercise Stress Test Report: Reason for termination: Protocol complete Summary: Resting ECG: SB HR 51 T wave inversions in infero/lateral leads Functional capacity: Not assessed Heart rate response to exercise: Not assessed Blood pressure response to exercise: Not assessed Chest pain:None Arrhythmias:Occasional PVC's ST-T changes:None Overall impression: Nondiagnostic stress test Conclusion: Pharmacologic stress test. Patient unable to complete test on TM due he patient was infused with 0.4 mg of Regadenoson (Lexiscan) intravenously over 10 seconds followed immediately by the injection of the Tc99m Sestamibi. Patient tolerated Lexiscan infusion without complications. Test terminated due to completion of protocol. Summary: 1. EKG: No EKG changes suggestive of ischemia 2. Symptoms: No chest pain or symptoms concerning for angina 3. Exercise physiology: Not assessed due to pharmacologic study 4. Arrhythmia: Occasional PVC's Conclusion: Pharmacologic stress test. No ischemic EKG changes from baseline with pharmacologic protocol.Patient hemodynamically stable at completion of exam. Nuclear image results pending. EKG reviewed with Dr. Harris. Fernanda Hodges NP Nuclear Study Quality Overall image quality is good. There are no artifacts present. Study gated Perfusion Conclusion The TID ratio was 1.1. Stress Function Comments Post-stress ejection fraction was 33%. Stress end diastolic index: 243 mL/m2. Stress end systolic index: 164 mL/m2. Nuclear Prior Study There is a prior study available for comparison that was performed on 07/30/2007. Rest Function Comments Resting ejection fraction was 34%. Rest end diastolic index: 235 mL. Rest end systolic index: 155 mL. Perfusion Scoring Stress Summed Score: 23 Percent Normal: 33.82% Absence of uptake in the following segments: basal inferolateral. Severe count reduction in the following segments: basal anteroseptal, basal anterolateral, mid inferior and mid inferolateral. Moderate count reduction in the following segments: mid anteroseptal. Mild count reduction in the following segments: basal inferoseptal, mid anterolateral, apical anterior, apical septal and apical inferior. All other segments are normal. Perfusion Scoring Resting Summed Score: 15 Percent Normal: 22.06% Absence of uptake in the following segments: basal inferolateral. Severe count reduction in the following segments: mid inferior and mid inferolateral. Moderate count reduction in the following segments: basal anterolateral. Mild count reduction in the following segments: basal anteroseptal, basal inferoseptal and apical lateral. All other segments are normal. us Adolfo Otto MD CV NM CARDIAC Final Result documented in this encounter Visit Diagnoses Diagnosis Arrhythmogenic right ventricular tachycardia Paroxysmal ventricular tachycardia documented in this encounter Care Teams Project Construction Manager Relationship Specialty Start Date End Date Greyson Francois MD PCP - General 04/28/17 documented as of this encounter Additional Source Comments The information contained in this document represents components of the legal health record. It is not the complete legal health record.[facility]
--- OUTSIDE RECORDS SUMMARY | 2025-02-11 09:44 | XMS_ITS | Encounter Summary ---
Author Organization [facility] Address [address] [facility] [address] [place] [address] Phone Care Team Providers Care Cementer Helper Name Role Phone Greyson Francois MD Primary Care Provider + Encounter Details Date Type Department Care Team (Late st Contact Info) Description 04/28/2017 Ancillary [facility] [address] [place] [address] Greyson Sabillon DO [address] [facility] [address] [place] [address] [email or web address] Social History Tobacco Use Types Packs/Day Years [...] Description 03/14/2025 3:00 PM EST Office Visit [facility] [address] [place] [address] Elodia Carbajal MD [address] [place] [address] [address] [place] [address] [email or web address] documented as of this encounter Visit Diagnoses Not on filedocumented in this encounter Care Teams Cementer Helper Relationship Specialty Start Date End Date Greyson Francois MD PCP - General 04/28/17 documented as of this encounter Additional Source Comments The information contained in this document represents components of the legal health record. It is not the complete legal health record.[facility]
--- OUTSIDE RECORDS SUMMARY | 2025-02-11 09:45 | XMS_ITS | Encounter Summary ---
Author Organization [facility] Address [address] [place] [address] Care Team Providers Care Blast Furnace Blower Name Role Phone Greyson Francois MD Primary Care Provider [phone] Encounter Details Date Type Department Care Team (Late Contact Info) Description 05/13/[address] [facility] Lab [address] [facility] [place] [phone] Jack Campos PA [address] [address] Essential (primary) hypertension; Cardiac arrhythmia, unspecified; Generalized anxiety disorder; Encounter for screening for malignant neoplasm of prostate; Impaired fasting glucose Social History Tobacco Use Types Packs/Day Years [...] Orientation Straight 05/13/2024 2: 42 PM EST documented as of this encounter Plan of Treatment Upcoming Encounters Date Type Department Care Team (Late Contact Info) Description 03/02/2025 11:10 AM EST Office Visit Gastroenterology - [address] [facility] [address] [place] [phone] Marti Palomo PA 299 [facility] [address] [place] [address] 11/07/2025 10:30 AM EDT Office Visit [facility] [place] [address] [place] [address] Jair Canseco MD [address] [place] [address] documented as of this encounter Procedures Procedure Name Priority Date/Time Associated Diagnosis Comments PROSTATE SPECIFIC ANTIGEN SCREEN Routine 05/13/2024 12:00 AM EST Essential (primary) hypertension Cardiac arrhythmia, unspecified Generalized anxiety disorder Encounter for screening for malignant neoplasm of prostate Impaired fasting glucose SST - GOLD Routine 05/13/2024 12:00 AM EST Essential (primary) hypertension Cardiac arrhythmia, unspecified Generalized anxiety disorder Encounter for screening for malignant neoplasm of prostate Impaired fasting glucose LIPID PANEL WITH REFLEX TO DIRECT LDL Routine 05/13/2024 12:00 AM EST Essential (primary) hypertension Cardiac arrhythmia, unspecified Generalized anxiety disorder Encounter for screening for malignant neoplasm of prostate Impaired fasting glucose CBC WITH AUTO DIFFERENTIAL Routine 05/13/2024 12:00 AM EST Essential (primary) hypertension Cardiac arrhythmia, unspecified Generalized anxiety disorder Encounter for screening for malignant neoplasm of prostate Impaired fasting glucose CBC AND DIFFERENTIAL Routine 05/13/2024 12:00 AM EST Essential (primary) hypertension Cardiac arrhythmia, unspecified Generalized anxiety disorder Encounter for screening for malignant neoplasm of prostate Impaired fasting glucose HEMOGLOBIN A1C Routine 05/13/2024 12:00 AM EST Impaired fasting glucose COMPREHENSIVE METABOLIC PANEL Routine 05/13/2024 12:00 AM EST Essential (primary) hypertension Cardiac arrhythmia, unspecified Generalized anxiety disorder Encounter for screening for malignant neoplasm of prostate Impaired fasting glucose documented in this encounter Results * SST tube (05/13/2024 12:00 AM EST) Extra Tube Hold for add-ons. 08/26/2024 8:03 AM EDT [facility] Comment:Auto resulted. Blood Venous blood specimen / Unknown 05/13/2024 05/13/2024 6:05 PM EST aJck [facility] BLOOD ORDERABLES Final Res ult [facility] [address] [place] [address], * (ABNORMAL) CBC auto differential (05/13/2024 12:00 AM EST) WBC 13.0(H) 4.8 - 10.8 K/mcL LAB HEMETOLOGY METHOD 05/13/2024 6:51 PM [facility] RBC 2.90(L) 4.50 - 5.50 M/mcL LAB HEMETOLOGY METHOD 05/13/2024 6:51 PM [facility] Hemoglobin 11.0(L) 13.5 - 17.5 g/dL LAB HEMETOLOGY METHOD 05/13/2024 6:51 PM [facility] Hematocrit 34.2(L) 42.0 - 54.0 % LAB HEMETOLOGY METHOD 05/13/2024 6:51 PM [facility] MCV 117.5(H) 79.0 - 98.0 FL LAB HEMETOLOGY METHOD 05/13/2024 6:51 PM [facility] MCH 37.8(H) 27.0 - 32.0 pcg LAB HEMETOLOGY METHOD 05/13/2024 6:51 PM [facility] MCHC 32.2 32.0 - 37.0 g/dL LAB HEMETOLOGY METHOD 05/13/2024 6:51 PM [facility] RDW 18.5(H) 11.0 - 15.0 % LAB HEMETOLOGY METHOD 05/13/2024 6:51 PM [facility] Platelets 281 130 - 400 K/mcL LAB HEMETOLOGY METHOD 05/13/2024 6:51 PM [facility] MPV 11.4(H) 7.0 - 11.0 FL LAB HEMETOLOGY METHOD 05/13/2024 6:51 PM [facility] NRBC 0.0 <1.0 % LAB HEMETOLOGY METHOD 05/13/2024 6:51 PM [facility] NRBC Absolute 0.00 <0.10 K/mcL LAB HEMETOLOGY METHOD 05/13/2024 6:51 PM [facility] Neutrophils Relative 77.9 % LAB HEMETOLOGY METHOD 05/13/2024 6:51 PM [facility] Lymphocytes Relative 8.9 % LAB HEMETOLOGY METHOD 05/13/2024 6:51 PM [facility] Monocytes Relative 9.6 % LAB HEMETOLOGY METHOD 05/13/2024 6:51 PM [facility] Eosinophils Relative 1.4 % LAB HEMETOLOGY METHOD 05/13/2024 6:51 PM [facility] Basophils Relative 0.7 % LAB HEMETOLOGY METHOD 05/13/2024 6:51 PM [facility] Immature Granulocytes Relative 1.5 % LAB HEMETOLOGY METHOD 05/13/2024 6:51 PM [facility] Neutrophils Absolute 10.11(H) 1.50 - 7.00 K/mcL LAB HEMETOLOGY METHOD 05/13/2024 6:51 PM [facility] Lymphocytes Absolute 1.15 1.00 - 5.00 K/mcL LAB HEMETOLOGY METHOD 05/13/2024 6:51 PM [facility] Monocytes Absolute 1.24(H) 0.20 - 1.00 K/mcL LAB HEMETOLOGY METHOD 05/13/2024 6:51 PM EST [facility] Eosinophils Absolute 0.18 0.00 - 0.50 K/mcL LAB HEMETOLOGY METHOD 05/13/2024 6:51 PM EST [facility] Basophils Absolute 0.09 0.00 - 0.20 K/[facility] LAB HEMETOLOGY METHOD 05/13/2024 6:51 PM EST [facility] Immature Granulocytes Absolute 0.19(H) 0.00 - 0.03 K/[facility] HEMETOLOGY METHOD 05/13/2024 6:51 PM EST [facility] Blood Venous blood specimen / Unknown 05/13/2024 05/13/2024 6:05 PM EST Jack [facility] BLOOD ORDERABLES Final Res ult Performing Organization Address [facility] Co de Phone Number [facility] [address] [place] [address], [place] [phone] * Prostate specific antigen screen (05/13/2024 12:00 AM EST) PSA 2.07 0.00 - 4.00 ng/mL LAB CHEMISTRY METHOD 05/13/2024 6:55 PM EST [facility] Blood Venous blood specimen / Unknown 05/13/2024 05/13/2024 6:05 PM EST Narrative [facility] - 05/13/2024 6:55 PM EST The Siemens Advia Centaur Chemiluminescent Immunoassay is used. Results obtained with different assay methods or kits cannot be used interchangeably. Results cannot be interpreted as absolute evidence of the presence or absence of malignant disease. us Jack [facility] BLOOD ORDERABLES Final Res ult Performing Organization Address City/[facility]/ZIP Co de Phone Number [facility] [address] [place] [address], [place] [phone] * Hemoglobin A1c (05/13/2024 12:00 AM EST) Hemoglobin A1C 4.9 <6.5 % LAB CHEMISTRY METHOD 05/13/2024 9:06 PM [facility] Mean Bld Glu Estim. 94 mg/dL LAB CHEMISTRY METHOD 05/13/2024 9:06 PM [facility] Blood Venous blood specimen / Unknown 05/13/2024 05/13/2024 6:05 PM EST Jack [facility] BLOOD ORDERABLES Final Res ult [facility] [address] [place] [address], [place] [phone] * (ABNORMAL) Lipid panel with reflex to direct LDL (05/13/2024 12:00 AM EST) Pathologist [facility] Cholesterol 69 0 - 200 mg/dL LAB CHEMISTRY METHOD 05/13/2024 6:55 PM [facility] Triglycerides 81 0 - 150 mg/dL LAB CHEMISTRY METHOD 05/13/2024 6:55 PM [facility] HDL 30(L) >=40 mg/dL LAB CHEMISTRY METHOD 05/13/2024 6:55 PM [facility] LDL Calculated 23 0 - 100 mg/dL LAB CHEMISTRY METHOD 05/13/2024 6:55 PM [facility] VLDL Cholesterol Jose 16.2 mg/dL LAB CHEMISTRY METHOD 05/13/2024 6:55 PM [facility] Non HDL Chol. (LDL+VLDL) 39 <145 mg/dL LAB CHEMISTRY METHOD 05/13/2024 6:55 PM [facility] Chol/HDL Ratio 2.3 0.0 - 4.4 LAB CHEMISTRY METHOD 05/13/2024 6:55 PM [facility] Blood Venous blood specimen / Unknown 05/13/2024 05/13/2024 6:05 PM EST us Jack [facility] BLOOD ORDERABLES Final Res ult [facility] [address] [place] [address], [place] [phone] * (ABNORMAL) Comprehensive metabolic panel (05/13/2024 12:00 AM EST) Sodium 143 133 - 145 mmol/L LAB CHEMISTRY METHOD 05/13/2024 6:56 PM [facility] Potassium 4.9 3.5 - 5.5 mmol/L LAB CHEMISTRY METHOD 05/13/2024 6:56 PM [facility] Comment:Hemolysis present Chloride 118(H) 96 - 110 mmol/L LAB CHEMISTRY METHOD 05/13/2024 6:56 PM [facility] CO2 23 21 - 32 mmol/L LAB CHEMISTRY METHOD 05/13/2024 6:56 PM [facility] Anion Gap 2(L) 3 - 11 LAB CHEMISTRY METHOD 05/13/2024 6:56 PM [facility] Glucose 71 70 - 100 mg/dL LAB CHEMISTRY METHOD 05/13/2024 6:56 PM [facility] BUN 22 5 - 25 mg/dL LAB CHEMISTRY METHOD 05/13/2024 6:56 PM [facility] Creatinine 1.30 0.70 - 1.30 mg/dL LAB CHEMISTRY METHOD 05/13/2024 6:56 PM [facility] eGFR 54(L) >=60 mL/min/1. 73m2 LAB CHEMISTRY METHOD 05/13/2024 6:56 PM [facility] Comment:Calculation based on the Chronic Kidney Disease Epidemiology Collaboration (CKD-EPI) equation refit without adjustment for race. BUN/Creatinine Ratio 16.9 LAB CHEMISTRY METHOD 05/13/2024 6:56 PM [facility] Calcium 8.8 8.5 - 10.5 mg/dL LAB CHEMISTRY METHOD 05/13/2024 6:56 PM [facility] AST (SGOT) 38 10 - 42 unit/L LAB CHEMISTRY METHOD 05/13/2024 6:56 PM [facility] ALT (SGPT) 28 10 - 60 unit/L LAB CHEMISTRY METHOD 05/13/2024 6:56 PM [facility] Alkaline Phosphatase 70 42 - 121 unit/L LAB CHEMISTRY METHOD 05/13/2024 6:56 PM [facility] Total Protein 6.7 6.0 - 8.0 g/dL LAB CHEMISTRY METHOD 05/13/2024 6:56 PM [facility] Albumin 3.9 3.2 - 5.0 g/dL LAB CHEMISTRY METHOD 05/13/2024 6:56 PM [facility] Total Bilirubin 0.5 0.0 - 1.4 mg/dL LAB CHEMISTRY METHOD 05/13/2024 6:56 PM [facility] Blood Venous blood specimen / Unknown 05/13/2024 05/13/2024 6:05 PM EST Jack [facility] BLOOD ORDERABLES Final Res ult [facility] [address] [place] [address], documented in this encounter Visit Diagnoses Diagnosis Essential (primary) hypertension Unspecified essential hypertension Cardiac arrhythmia, unspecified Generalized anxiety disorder Encounter for screening for malignant neoplasm of prostate Impaired fasting glucose documented in this encounter Care Teams Blast Furnace Blower Relationship Specialty Start Date End Date Greyson Francois MD [address] [phone] PCP - General 12/14/14 documented as of this encounter
--- NOTE | 2025-02-11 09:52 | HO.SUDE ---
T/W met with Pt at bedside to provide support. Pt's daughter in law Fozia was present as well. Pt has been experiencing some increased life stressors. His is diagnosed with Alzheimers and is in a facility in [place]. Pt just arrived home from [place] where he was visiting his daughter. Pt's daughter is on hospice and dying of cancer. This would be the last time he saw his daughter before she passes away. Pt came into the ED via EMS due to chest pain and had been experiencing a panic attack. This bid writer provided therapeutic support and discussed things Pt likes to do; go to lunch with friends, and go for walks. [facility] was discussed as it is a great resource for residents. Pt was provided with the contact information for Sabiha Arechiga NP who specializes in providing care to Geriatric folks. Pt was open to this information and taking time for himself more through this difficult time in life. Pt was grateful for support.
[2025-02-11] MEDS: iohexoL 350 MG/ML 100 ML INFUS..BTL IV (10:16)
[2025-02-11] MEDS: Furosemide 20 MG/2 ML VIAL IVPUSH (11:08)
[2025-02-11 11:16] LABS: Troponin-I High Sensitivity 56.1 ng/L (<3.5-35.0)
--- NOTE | 2025-02-11 11:36 | PHA.MEDREC ---
Addendum entered by Arlyn Singh RPh 02/11/25 12:43: MED REC REVIEWED BY [facility] Atorvastatin 80 mg was last filled in march but patient still has its bottle and is taking it. Original Note: Pharmacy Consult ? Medication Reconciliation Pharmacy has completed the medication reconciliation. Patient had all his RX bottles with him. patient confirmed Metoprolol tart 100 mg QAm and 50 mg QPM patient last had his medications last night.
--- NOTE | 2025-02-11 11:58 | PM.IMHP ---
History of Present Illness Date of Service: 02/11/25 Attending physician on admission: Tosin Heard Chief Complaint: shortness of breath This is an 84-year-old male with a history of coronary artery disease who presents to the emergency department with a shortness of breath. Patient recently returned from a trip in [place] and was in his usual state of health until overnight. Overnight he was feeling restless and having difficulty falling asleep, he got up to go to the bathroom and felt short of breath. He reported dyspnea, chest pressure on the left side of his chest without radiation. He has had no associated cough, fever, chills. He denies any lower extremity edema. Due to the severity of his dyspnea he was brought to the emergency department for evaluation. In the emergency department he was noted to be hypoxic, requiring 2 L nasal cannula for adequate oxygenation. Lab work showing elevated white blood cell count of 12.6, D-dimer intermediate at 350 and BNP elevated at 2520. CTA showed no evidence of pulmonary artery emboli, showed a combination of pulmonary edema with multifocal pneumonia and bilateral moderate volume pleural effusions with concerning mitral valve insufficiency resulting in dilated left atrium and left ventricle. He was treated with IV Lasix, IV ceftriaxone and admission was requested. Review of Systems Review of Systems: Yes all other systems are reviewed and are negative Constitutional: Constitutional: Denies chills and Denies fever(s) Cardiovascular: Cardiovascular: Reports chest pain, Denies palpitations, Reports dyspnea and Reports dyspnea on exertion Respiratory: Respiratory: Reports dyspnea and Reports dyspnea on exertion Gastrointestinal: Gastrointestinal: Denies nausea and Denies vomiting Endocrine: Endocrine: Denies palpitations [facility] Medical History CAD (coronary artery disease) Surgical History AICD (automatic cardioverter/defibrillator) present Social History Patient Tobacco Use Status: Never used Tobacco Smoked in Last 30 Days: No Use of substances other than those prescribed or required for medical reasons: No Advance Directives: Yes Advance Directives Information Provided: Yes Advance Directives on File: No Do you have a plan to hurt others: No Plan Nutrition Risks: No Nutritional Risk Meds Allergies Allergy/AdvReac Type Severity Reaction Status Date / Time No Known Allergies Allergy Verified 02/11/25 08:45 Home Medications ?Medication ?Instructions ?Recorded ?Confirmed ?Last Taken ?Type aspirin 81 mg tablet,delayed 81 mg PO DAILY 02/11/25 02/11/25 02/10/25 History release atorvastatin 80 mg tablet 80 mg PO BEDTIME 02/11/25 02/11/25 02/10/25 History dorzolamide 22.3 mg-timolol 6.8 1 drp ophthalmic-Left BID 02/11/25 02/11/25 02/10/25 History mg/mL eye drops lactulose 10 gram/15 mL oral 30 ml PO DAILY 02/11/25 02/11/25 02/10/25 History solution latanoprost 0.005 % eye drops 1 drp ophthalmic-Left DAILY 02/11/25 02/11/25 02/10/25 History lisinopril 20 mg tablet 20 mg PO BID 02/11/25 02/11/25 02/10/25 History metoprolol tartrate 100 mg tablet 50 mg PO BEDTIME 02/11/25 02/11/25 02/10/25 History metoprolol tartrate 100 mg tablet 100 mg PO DAILY 02/11/25 02/11/25 02/10/25 History mexiletine 200 mg capsule 200 mg PO BID 02/11/25 02/11/25 02/10/25 History Physical Exam Vital Signs and Narrative: Vital Signs: Last Vital Signs Temp 98 F 02/11/25 08:35 Pulse 60 02/11/25 10:22 Resp 16 02/11/25 10:22 BP 161/71 H 02/11/25 11:08 Pulse Ox 92 02/11/25 10:22 O2 Del Method Room Air 02/11/25 10:22 BMI result Body Mass Index 23.7 Const: General: cooperative, alert and awake Nutritional Appearance: average body habitus Orientation/consciousness: patient oriented x3 Resp: Other: rales Effort & Inspection: able to speak in complete sentences and no use of accessory muscles Cardio: Rate: regular rate GI: Inspection: No distended Palpation (GI): Soft to palpation Neuro: General: patient oriented x3, moves all extremities and CN's II-XI intact bilaterally Extrem: General: No pedal edema Results Labs 02/11/25 08:48 02/11/25 08:48 Labs: Laboratory Results - last 24 hr 02/11/25 02/11/25 02/11/25 08:48 09:58 10:49 MCV 116.3 H MCH 39.2 H MCHC 33.7 RDW 17.1 H Plt Count 281 MPV 9.8 Immature Gran % (Auto) 1.3 H Neut % (Auto) 81.0 H Lymph % (Auto) 6.8 L [place] % (Auto) 9.0 Eos % (Auto) 1.3 Baso % (Auto) 0.6 Lymph # (Auto) 0.9 L [place] # (Auto) 1.1 Eos # (Auto) 0.2 Baso # (Auto) 0.1 Abs Immat Gran (auto) 0.16 H Absolute Neuts (auto) 10.2 H Absolute Nucleated RBC 0.000 Nucleated RBC % (auto) 0.0 Smear Tech's Comments VERIFIED D-Dimer High Sensitivty 350 Anion Gap 12 Estim Creat Clear Calc 53.7 Estimated GFR 58 Random Glucose 141 H Lactic Acid 1.6 Calcium 8.9 Magnesium 1.9 Total Bilirubin 0.8 AST 27 ALT 25 Alkaline Phosphatase 69 Troponin I High Sens 61.5 H 56.1 H NT-Pro-B Natriuret Pep 2520.5 H Total Protein 6.6 Albumin 4.4 COVID-19 (HALEY) Negative COVID-19 Clin Com See Note Influenza Type A (EMMETT) Negative Influenza Type B (EMMETT) Negative Influenza A & B Note See Note Imaging Radiologist's Impressions: Impressions Chest X-Ray 02/11/25 08:40 IMPRESSION: Chronic interstitial lung disease with superimposed mild interstitial lung edema versus multifocal pneumonia. Cardiomegaly versus pericardial effusion. Electronically signed by: Campbell Clayton MD 02/11/2025 09:03 AM EST RP Chest CTA 02/11/25 10:10 IMPRESSION: No acute pulmonary artery emboli. Combination of pulmonary edema with the multifocal pneumonia and bilateral moderate volume pleural effusions. Concerning mitral valve insufficiency resulting in dilated left atrium and left ventricle. 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 Multifocal cystic lesions, kidney. Coronary artery disease and atherosclerosis disease. Fleischner guidelines were followed. Electronically signed by: Campbell Clayton MD 02/11/2025 10:33 AM EST RP Assessment and Plan (1) CHF (congestive heart failure): Status: Acute Plan This is an 84 year old male with h/o CAD s/p AICD, HTN, HLD who presents to the emergency department with shortness of breath found to have concern for CHF and pneumonia Acute respiratory failure with hypoxia due to CHF and probable underlying pneumonia with b/l pleural effusions Continue supplemental oxygen as needed, wean as tolerated treat underlying CHF and PNA as below Acute CHF, unspecified Patient denies history of CHF, not on diuretics at baseline No cardiac history available, [place] [facility] no documentation in the past 5 years will try to obtain records from [facility] obtain ECHO cardiology consult IV lasix 40 mg IV bid follow urine output trend pro-BNP CAD h/o unspecified ventricular arrhythmia mexiletine is NF, will likely need to be brought from home continue ASA, statin, metoprolol troponin flat at 61, 56 - likely represents demand due to acute CHF and pneumonia Community acquired pneumonia imaging concerning for multifocal pneumonia no significant cough or fever -will check procalcitonin blood cultures pending continue empiric abx for now HTN continue metoprolol Hold lisinopril for now while being diuresed dvt ppx - lovenox Patient will likely require 2 midnight stay in the hospital for management of acute CHF with probable superimposed multifocal pneumonia requiring close cardiac monitoring, specialist evaluation and IV medications which can not be achieved in the lesser acute setting Quality Stroke Does the patient have a stroke diagnosis?: No VTE Prior VTE?: No VTE Risk Level:: Medical - moderate - high VTE Device Contraindication: Treatment Not Indicated VTE Drug Contraindication: N/A - Med Ordered
[2025-02-11 12:07] LABS: Appearance Urine Clear; Glucose Urine UA Negative (Negative); PH 6.0 (5.0-9.0); Specific Gravity - Urine 1.015 (1.005-1.025)
[2025-02-11 12:40] LABS: Procalcitonin 0.02 ng/mL
--- NOTE | 2025-02-11 15:12 | PC.NURSE ---
Food tray provided to patient.
[2025-02-11] MEDS: Furosemide 40 MG/4 ML VIAL IVPUSH (17:35)
[2025-02-11] MEDS: Dorzolamide/Timolo 2.23%/0.68% 10 ML DRBTL 1 DROP EYE-LEFT (22:47)
[2025-02-11] MEDS: 0.9 % Sodium Chloride Flush 3 ML SYRINGE IVFLUSH (23:48)
[2025-02-12] VITALS (9 sets, daily range): BP systolic 116–164; BP diastolic 58–77; PULSE 54–69; RESP 16–18; TEMP 36.5–37; O2SAT 92–96
[2025-02-12 07:31] LABS: Chlamydia pneumoniae PCR Not Detected (Not Detect.); Coronavirus 229E PCR Not Detected (Not Detect.)
[2025-02-12 07:32] LABS: Coronavirus HKU1 PCR Not Detected (Not Detect.); Coronavirus NL63 PCR Not Detected (Not Detect.); Coronavirus OC43 PCR Not Detected (Not Detect.); Influenza A H1 PCR Not Detected (Not Detect.); Influenza A H1-2009 PCR Not Detected (Not Detect.); Influenza A H3 PCR Not Detected (Not Detect.); RSV PCR Not Detected (Not Detect.); Rhino/Enterovirus PCR Not Detected (Not Detect.); SARS-CoV-2 PCR Not Detected (Not Detect.)
[2025-02-12 07:57] LABS: Anion Gap 12 (12-20); Blood Urea Nitrogen 22 mg/dL (9-16); Calcium 9.0 mg/dL (8.4-10.2); Carbon Dioxide 29 mmol/L (22-29); Chloride 107 mmol/L (96-108); Creatinine Clr Calc Pharmacy 51.9; Estimated Glomerular Filt Rate 56; Potassium 4.0 mmol/L (3.3-5.1); Sodium 144 mmol/L (135-145)
[2025-02-12] MEDS: Aspirin Enteric Coated 81 MG TABLET.DR PO (08:48)
[2025-02-12] MEDS: Furosemide 40 MG/4 ML VIAL IVPUSH ×2 (08:49→17:43)
[2025-02-12] MEDS: 0.9 % Sodium Chloride Flush 3 ML SYRINGE IVFLUSH ×3 (08:50→23:19)
[2025-02-12] MEDS: Dorzolamide/Timolo 2.23%/0.68% 10 ML DRBTL 1 DROP EYE-LEFT ×2 (08:51→19:53)
--- NOTE | 2025-02-12 11:40 | HO.PM.IMPN ---
Subjective Subjective Date of Service: 02/12/25 Interval History: Highly anxious about some ongoing social situation including with advanced [place] dementia in longterm, daughter in [place] with stage 4 cancer and hospice and other stresses, c/o tingingling in feet and fingers Physical Exam Exam: Exam: General: AO X 3, no acute distress Resp: CTA bilateral CVS: S1,S2,RRR GI: +BS, NT, no distention Skin: No rash Neuro: motor grossly intact Psych: appropriate affect Vital Signs: Vital Signs: Last Vital Signs Temp 98.6 F 02/12/25 07:31 Pulse 55 02/12/25 07:31 Resp 18 02/12/25 07:31 BP 135/62 02/12/25 07:31 Pulse Ox 92 02/12/25 07:31 O2 Del Method Room Air 02/12/25 07:31 O2 Flow Rate 1 02/11/25 17:37 BMI result Body Mass Index 23.7 Objective Data Active Medications Acetaminophen (Acetaminophen 325 Mg Tablet) 650 mg PO Q6H PRN PRN Reason: Pain, Mild 1-3,fever,headache Aspirin (Aspirin Enteric Coated 81 Mg Tablet.Dr) 81 mg PO DAILY [facility] Last Admin: 02/12/25 08:48 Dose: 81 mg Documented By: BARTOLO Atorvastatin Calcium (Atorvastatin Calcium 80 Mg Tablet) 80 mg PO BEDTIME [facility] Last Admin: 02/11/25 21:21 Dose: 80 mg Documented By: MADISON Calcium Carbonate (Calcium Carbonate 750 Mg Tab.Chew) 750 mg PO Q4H PRN PRN Reason: Heartburn Dorzolamide/Timolol (Dorzolamide/Timolo 2.23%/0.68% 10 Ml Drbtl) 1 drop EYE-LEFT BID [facility] Last Admin: 02/12/25 08:51 Dose: 1 drop Documented By: BARTOLO Enoxaparin Sodium (Enoxaparin Sodium 40 Mg/0.4 Ml Syringe) 40 mg SUBCUT Q24H [facility] Last Admin: 02/11/25 17:35 Dose: 40 mg Documented By: SHELLIE Furosemide (Furosemide 40 Mg/4 Ml Vial) 40 mg IVPUSH BID@0900,1800 [facility]; Protocol Last Admin: 02/12/25 08:49 Dose: 40 mg Documented By: BARTOLO Ceftriaxone Sodium 1 gm/ (Sodium Chloride) 50 mls @ 100 mls/hr IV Q24H [facility] Last Infusion: 02/12/25 09:40 Dose: Infused Documented By: BARTOLO Doxycycline Hyclate 100 mg/ (Sodium Chloride) 250 mls @ 166.67 mls/hr IV Q12H [facility] Last Infusion: 02/12/25 03:50 Dose: Infused Documented By: MADISON Lactulose (Lactulose 20 Gm/30 Ml Solution) 20 gm PO DAILY [facility] Last Admin: 02/12/25 08:48 Dose: 20 gm Documented By: BARTOLO Latanoprost (Latanoprost 0.005 % Ophth Peggy 2.5 Ml Drops) 1 drop EYE-LEFT BEDTIME BECKY Lorazepam (Lorazepam 0.5 Mg Tablet) 0.25 mg PO ONCE ONE Stop: 02/12/25 11:39 Magnesium Hydroxide (Milk Of Magnesia 30 Ml Oral.Susp) 30 ml PO DAILY PRN PRN Reason: Constipation Melatonin (Melatonin 3 Mg Tablet) 6 mg PO BEDTIME PRN PRN Reason: Insomnia Metoprolol Tartrate (Metoprolol Tartrate 100 Mg Tablet) 100 mg PO DAILY [facility]; Protocol Last Admin: 02/12/25 08:48 Dose: 100 mg Documented By: BARTOLO Metoprolol Tartrate (Metoprolol Tartrate 50 Mg Tablet) 50 mg PO BEDTIME [facility]; Protocol Last Admin: 02/11/25 21:21 Dose: 50 mg Documented By: MADISON Non-Formulary Medication (Mexiletine) 200 mg PO BID [facility] Sodium Chloride (0.9 % Sodium Chloride Flush 3 Ml Syringe) 3 ml IVFLUSH QSHIFT [facility] Last Admin: 02/12/25 08:50 Dose: 3 ml Documented By: BARTOLO Labs 02/11/25 08:48 02/12/25 07:31 Labs: Laboratory Results - last 24 hr 02/11/25 02/11/25 02/11/25 08:48 11:57 13:53 Hold Purple Top Anion Gap Estim Creat Clear Calc Estimated GFR Random Glucose Calcium NT-Pro-B Natriuret Pep Procalcitonin 0.02 Urine Color Yellow Urine Appearance Clear Urine pH 6.0 Ur Specific [place] 1.015 Urine Protein Negative Urine Glucose (UA) Negative Urine Ketones Negative Urine Blood Negative Urine Nitrite Negative Ur Leukocyte Esterase Negative Respiratory Panel Leonard See Note Adenovirus (Rapid PCR) Not Detected B.pert (TEM-PCR) Not Detected B.parapertussis DNA PCR Not Detected C. pneumoniae DNA (PCR) Not Detected Coronavirus OC43 (PCR) Not Detected Coronavirus HKU1 (PCR) Not Detected Coronavirus 229E (PCR) Not Detected Coronavirus NL63 (PCR) Not Detected Human Metapneumovir PCR Not Detected Influenza A (RT-PCR) Not Detected Influenza A (H1) PCR Not Detected Influ A () PCR Not Detected Influenza A (H3) PCR Not Detected Influenza B (RT-PCR) Not Detected M. pneumoniae (PCR) Not Detected Parainfluenza 1 (PCR) Not Detected Parainfluenza 2 (PCR) Not Detected Parainfluenza 3 (PCR) Not Detected Parainfluenza 4 (PCR) Not Detected RSV (PCR) Not Detected Entero/Rhino (PCR) Not Detected SARS-CoV-2 RNA (RT-PCR) Not Detected 02/12/25 07:31 Hold Purple Top SEE NOTE Anion Gap 12 Estim Creat Clear Calc 51.9 Estimated GFR 56 Random Glucose 100 Calcium 9.0 NT-Pro-B Natriuret Pep 2650.7 H Procalcitonin Urine Color Urine Appearance Urine pH Ur Specific [place] Urine Protein Urine Glucose (UA) Urine Ketones Urine Blood Urine Nitrite Ur Leukocyte Esterase Respiratory Panel Leonard Adenovirus (Rapid PCR) B.pert (TEM-PCR) B.parapertussis DNA PCR C. pneumoniae DNA (PCR) Coronavirus OC43 (PCR) Coronavirus HKU1 (PCR) Coronavirus 229E (PCR) Coronavirus NL63 (PCR) Human Metapneumovir PCR Influenza A (RT-PCR) Influenza A (H1) PCR Influ A () PCR Influenza A (H3) PCR Influenza B (RT-PCR) M. pneumoniae (PCR) Parainfluenza 1 (PCR) Parainfluenza 2 (PCR) Parainfluenza 3 (PCR) Parainfluenza 4 (PCR) RSV (PCR) Entero/Rhino (PCR) SARS-CoV-2 RNA (RT-PCR) Assessment and Plan (1) Acute depression: Status: Acute (2) CHF (congestive heart failure): Status: Acute (3) Shortness of breath: Status: Acute Plan 84 year old male with h/o CAD s/p AICD, HTN, HLD who presents to the emergency department with shortness of breath found to have concern for CHF and pneumonia Acute respiratory failure with hypoxia due to proable acute systolic CHF, woke up with suden sob, no pe, ? PNA on CTA but clinically doesn't appear to have pneumonia Will continue to treat for Heart failure with IV Lasix, Echo: 1. EF 30-35% with elevated filling pressures 2. Severely dilated left atrium 3. Early mild aortic stenosis 4. Mildly dilated ascending aorta at 3.8 cm CAD h/o unspecified ventricular arrhythmia mexiletine is NF, will likely need to be brought from home continue ASA, statin, metoprolol troponin flat at 61, 56 - likely represents demand due to acute CHF and pneumonia Possible Community acquired pneumonia, clinically doesn't appear to have Pneumonia, Procalcitonin is normal continue Ceftriaxone and Doxy for now Anxiety, low dose ativan, Psych for med management HTN continue metoprolol continue Lisinorpil dvt ppx - lovenox Patient will likely require 2 midnight stay in the hospital for management of acute CHF with probable superimposed multifocal pneumonia requiring close cardiac monitoring, specialist evaluation and IV medications which can not be achieved in the lesser acute setting Quality Stroke Does the patient have a stroke diagnosis?: No VTE Prior VTE?: No VTE Risk Level:: Medical - moderate - high VTE Device Contraindication: Treatment Not Indicated VTE Drug Contraindication: N/A - Med Ordered
--- NOTE | 2025-02-12 13:49 | PM.CNCAR ---
History of Present Illness History of Present Illness Date of Service: 02/12/25 Requesting physician: Derrell Nazario Consult reason: congestive heart failure Chief complaint: CHF Narrative: I was consulted to see Brian cardiology consultation today for acute shortness of breath and hypoxemic respiratory failure what appears to be related to pulmonary edema. Patient is 84 male who follows with the Cardiology but only on a yearly basis said he has been doing well. In 2013 he had for symptoms of fatigue and tiredness stenting done to the RCA with known chronic total occlusion of the circumflex at that time with collaterals with severe ischemic cardiomyopathy. He had subsequently underwent a [employer] ICD placement. Subsequently had a ICD discharge and he is currently on mexiletine therapy to prevent recurrent VT. He comes to the hospitalist says usually in generally good health. Recently traveled to [place] because of his daughter's health. He came to the hospital with sudden-onset shortness of breath. He said he had lot of anxiety in his not sure who is having anxiety episode. However when he came in he was noted to elevated BNP with CT findings suggestive of diffuse infiltrates and possibly suggestive of pulmonary edema as well. He has diuresed and came and echo done shows severe LV systolic dysfunction with regional wall motion abnormality consistent with ischemic cardiomyopathy with mild . That has also evidence of severe left atrial enlargement with mild mitral regurgitation. Patient has diuresed and says overall he feels fine but last night again had similar episodes of severe shortness of breath and anxiety feeling. He is currently still in the hospital. He is currently at home on metoprolol, lisinopril for neurohormonal modulation. He is on aspirin and atorvastatin as well as mexiletine therapy. Review of Systems Constitutional: Constitutional: Reports no additional constitutional complaints Eyes: Eyes: Reports no additional eye complaints Cardiovascular: Cardiovascular: Denies chest pain, Denies leg edema, Denies lightheadedness, Denies Loss of Consciousness, Reports dyspnea and Reports orthopnea Respiratory: Respiratory: Reports no additional respiratory complaints and Reports dyspnea Gastrointestinal: Gastrointestinal: Reports no additional gastrointestinal complaints Genitourinary: Genitourinary: Reports no additional male genitourinary complaints [facility] Past Medical History Medical History CAD (coronary artery disease) Surgical History Surgical History AICD (automatic cardioverter/defibrillator) present Social History Social History Household Members: None Do you presently have visiting nurse or other home services: No Patient Tobacco Use Status: Never used Tobacco Smoked in Last 30 Days: No Use of substances other than those prescribed or required for medical reasons: No Currently Displaying Signs/Symptoms of Drug Intoxication Withdrawal: No Have you been hit, kicked, punched, or otherwise hurt by someone within the past year? If so, by whom?: No Do you feel safe in your current relationship?: No Current Relationship Is there a partner from a previous relationship who is making you feel unsafe now?: No Are you made to feel afraid or neglected: No Advance Directives: No Advance Directives Information Provided: Yes Advance Directives on File: No Do you have a plan to hurt others: No Plan Recently lost weight without trying: Yes How much weight loss: 2-13 pounds Eating poorly because of decreased appetite: No Nutrition screen score: 3 Nutrition Risks: No Nutritional Risk Poor oral hygiene: No Meds Allergies Allergy/AdvReac Type Severity Reaction Status Date / Time No Known Allergies Allergy Verified 02/11/25 08:45 Active Medications: Current Medications Acetaminophen (Acetaminophen 325 Mg Tablet) 650 mg PO Q6H PRN PRN Reason: Pain, Mild 1-3,fever,headache Aspirin (Aspirin Enteric Coated 81 Mg Tablet.Dr) 81 mg PO DAILY [facility] Last Admin: 02/12/25 08:48 Dose: 81 mg Atorvastatin Calcium (Atorvastatin Calcium 80 Mg Tablet) 80 mg PO BEDTIME [facility] Last Admin: 02/11/25 21:21 Dose: 80 mg Calcium Carbonate (Calcium Carbonate 750 Mg Tab.Chew) 750 mg PO Q4H PRN PRN Reason: Heartburn Dorzolamide/Timolol (Dorzolamide/Timolo 2.23%/0.68% 10 Ml Drbtl) 1 drop EYE-LEFT BID [facility] Last Admin: 02/12/25 08:51 Dose: 1 drop Empagliflozin (Empagliflozin 10 Mg Tablet) 10 mg PO DAILY [facility] Last Admin: 02/12/25 12:33 Dose: 10 mg Enoxaparin Sodium (Enoxaparin Sodium 40 Mg/0.4 Ml Syringe) 40 mg SUBCUT Q24H [facility] Last Admin: 02/11/25 17:35 Dose: 40 mg Furosemide (Furosemide 40 Mg/4 Ml Vial) 40 mg IVPUSH BID@0900,1800 [facility]; Protocol Last Admin: 02/12/25 08:49 Dose: 40 mg Ceftriaxone Sodium 1 gm/ (Sodium Chloride) 50 mls @ 100 mls/hr IV Q24H [facility] Last Infusion: 02/12/25 09:40 Dose: Infused Doxycycline Hyclate 100 mg/ (Sodium Chloride) 250 mls @ 166.67 mls/hr IV Q12H [facility] Last Infusion: 02/12/25 03:50 Dose: Infused Lactulose (Lactulose 20 Gm/30 Ml Solution) 20 gm PO DAILY [facility] Last Admin: 02/12/25 08:48 Dose: 20 gm Latanoprost (Latanoprost 0.005 % Ophth Peggy 2.5 Ml Drops) 1 drop EYE-LEFT BEDTIME [facility] Magnesium Hydroxide (Milk Of Magnesia 30 Ml Oral.Susp) 30 ml PO DAILY PRN PRN Reason: Constipation Melatonin (Melatonin 3 Mg Tablet) 6 mg PO BEDTIME PRN PRN Reason: Insomnia Metoprolol Tartrate (Metoprolol Tartrate 100 Mg Tablet) 100 mg PO DAILY [facility]; Protocol Last Admin: 02/12/25 08:48 Dose: 100 mg Metoprolol Tartrate (Metoprolol Tartrate 50 Mg Tablet) 50 mg PO BEDTIME [facility]; Protocol Last Admin: 02/11/25 21:21 Dose: 50 mg Non-Formulary Medication (Mexiletine) 200 mg PO BID [facility] Sodium Chloride (0.9 % Sodium Chloride Flush 3 Ml Syringe) 3 ml IVFLUSH QSHIFT [facility] Last Admin: 02/12/25 13:15 Dose: 3 ml Home Medications ?Medication ?Instructions ?Recorded ?Confirmed ?Last Taken ?Type aspirin 81 mg tablet,delayed 81 mg PO DAILY 02/11/25 02/11/25 02/10/25 History release atorvastatin 80 mg tablet 80 mg PO BEDTIME 02/11/25 02/11/25 02/10/25 History dorzolamide 22.3 mg-timolol 6.8 1 drp ophthalmic-Left BID 02/11/25 02/11/25 02/10/25 History mg/mL eye drops lactulose 10 gram/15 mL oral 30 ml PO DAILY 02/11/25 02/11/25 02/10/25 History solution latanoprost 0.005 % eye drops 1 drp ophthalmic-Left DAILY 02/11/25 02/11/25 02/10/25 History lisinopril 20 mg tablet 20 mg PO BID 02/11/25 02/11/25 02/10/25 History metoprolol tartrate 100 mg tablet 50 mg PO BEDTIME 02/11/25 02/11/25 02/10/25 History metoprolol tartrate 100 mg tablet 100 mg PO DAILY 02/11/25 02/11/25 02/10/25 History mexiletine 200 mg capsule 200 mg PO BID 02/11/25 02/11/25 02/10/25 History cyclopentolate 1 % eye drops 1 drp ophthalmic-Left DAILY 02/12/25 02/12/25 Unknown History netarsudil 0.02 % eye drops 1 drp ophthalmic-Left BEDTIME 02/12/25 02/12/25 Unknown History (Rhopressa) Physical Exam Vital Signs: Vital Signs: Last Vital Signs Temp 97.9 F 02/12/25 11:43 Pulse 58 02/12/25 11:43 Resp 18 02/12/25 11:43 BP 164/77 H 02/12/25 11:43 Pulse Ox 94 02/12/25 11:43 O2 Del Method Room Air 02/12/25 07:31 O2 Flow Rate 1 02/11/25 17:37 BMI result Body Mass Index 23.7 Const: General: cooperative, alert and Physically active Nutritional Appearance: average body habitus Orientation/consciousness: patient oriented x3 Limitations: no limitations HEENT: Head: Yes normocephalic and Yes atraumatic Neck: Neck: Yes trachea midline, Yes supple and Yes no JVD Resp: Effort & Inspection: normal respiratory effort Auscultation: clear to auscultation bilaterally Cardio: Jugular venous distension: no JVD Palpation: abnormal PMI displaced PMI Rate: regular rate Rhythm: regular rhythm Heart sounds: S1 normal heart sound present, S2 normal heart sound present, no click and Murmur heart sound present systolic GI: Auscultation: normal bowel sounds Skin: General skin exam: no rashes or lesions noted Neuro: General: patient oriented x3 and no focal motor deficits Extrem: General: Yes no clubbing, cyanosis or edema Objective Labs and Meds 02/11/25 08:48 02/12/25 07:31 Lab results: Laboratory Results - last 24 hr 02/11/25 02/12/25 13:53 07:31 Hold Purple Top SEE NOTE Sodium 144 Potassium 4.0 Chloride 107 Carbon Dioxide 29 Anion Gap 12 BUN 22 H Creatinine 1.23 Estim Creat Clear Calc 51.9 Estimated GFR 56 Random Glucose 100 Calcium 9.0 NT-Pro-B Natriuret Pep 2650.7 H Respiratory Panel Leonard See Note Adenovirus (Rapid PCR) Not Detected B.pert (TEM-PCR) Not Detected B.parapertussis DNA PCR Not Detected C. pneumoniae DNA (PCR) Not Detected Coronavirus OC43 (PCR) Not Detected Coronavirus HKU1 (PCR) Not Detected Coronavirus 229E (PCR) Not Detected Coronavirus NL63 (PCR) Not Detected Human Metapneumovir PCR Not Detected Influenza A (RT-PCR) Not Detected Influenza A (H1) PCR Not Detected Influ A (H1/09) PCR Not Detected Influenza A (H3) PCR Not Detected Influenza B (RT-PCR) Not Detected M. pneumoniae (PCR) Not Detected Parainfluenza 1 (PCR) Not Detected Parainfluenza 2 (PCR) Not Detected Parainfluenza 3 (PCR) Not Detected Parainfluenza 4 (PCR) Not Detected RSV (PCR) Not Detected Entero/Rhino (PCR) Not Detected SARS-CoV-2 RNA (RT-PCR) Not Detected Assessment and Plan (1) Decompensated heart failure: Status: Acute Decompensated congestive heart failure in this elderly gentleman with known prior history of severe ischemic cardiomyopathy and underlying coronary disease with prior stenting. Probably exacerbated by his recent pneumonia/viral illness with pulmonary edema. Ischemia can not be entirely ruled out although there was no evidence of acute coronary syndrome. At this point time he is still has symptoms at nighttime with what appears to be PND. Diuresis for 1 more day and see downtrending BNP tomorrow hopefully. Continue monitor strict intake and output chart. Follow up labs tomorrow. I would switch his lisinopril to valsartan therapy and eventually plan to switch him to Entresto therapy. Add Jardiance 10 mg to his regimen. Continue metoprolol. Continue mexiletine for ventricular arrhythmias in the past. Continue aspirin and statin therapy. 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 Will follow with you Procedures Date of Service Date of Service: 02/12/25
[2025-02-12] MEDS: Latanoprost 0.005 % Ophth Sol 2.5 ML DROPS 1 DROP EYE-LEFT (19:53)
[2025-02-12 21:59] LABS: MANUAL DIFF FLAG NO
[2025-02-12 22:03] LABS: Hematocrit 33.7 % (42.0-52.0); Hemoglobin 11.4 g/dl (14.0-18.0); Imm Gran Abs Auto 0.09 X10*3/uL (0.00-0.03); Imm Gran Pct Auto 0.9 % (0.0-0.4); Lymphocytes Absolute Auto 1.2 X10*3/uL (1.2-4.9); Mean Corpuscular HGB Conc 33.8 g/dl (31.0-36.0); Mean Corpuscular Hemoglobin 39.2 pg (27.0-33.0); Mean Corpuscular Volume 115.8 fL (80.0-98.0); NRBC Abs Auto 0.000 X10*3/uL (0.0-0.012); NRBC Pct Auto 0.0 /100WBC (0.0-0.2); Platelet Count 269 X10*3/uL (160-400); Red Blood Count 2.91 X10*6/uL (4.60-5.80); White Blood Count 10.2 X10*3/uL (4.8-10.8)
[2025-02-13] VITALS: BP 125/61; PULSE 56; RESP 16; TEMP 36.7; O2SAT 92
[2025-02-13 03:19] VITALS: BP 137/61; PULSE 50; RESP 16; TEMP 36.7; O2SAT 93
[2025-02-13 07:28] VITALS: BP 122/58; PULSE 56; RESP 18; TEMP 36.7; O2SAT 92
[2025-02-13 08:02] LABS: Anion Gap 13 (12-20); Blood Urea Nitrogen 27 mg/dL (9-16); Calcium 8.7 mg/dL (8.4-10.2); Carbon Dioxide 29 mmol/L (22-29); Chloride 104 mmol/L (96-108); Creatinine Clr Calc Pharmacy 52.8; Estimated Glomerular Filt Rate 57; Potassium 3.6 mmol/L (3.3-5.1); Sodium 142 mmol/L (135-145)
[2025-02-13 08:06] LABS: NT Pro B Type Natriuretic Pept 1236.3 pg/mL (<300)
[2025-02-13] MEDS: Aspirin Enteric Coated 81 MG TABLET.DR PO (08:38)
[2025-02-13] MEDS: Dorzolamide/Timolo 2.23%/0.68% 10 ML DRBTL 1 DROP EYE-LEFT (08:43)
[2025-02-13] MEDS: Cyclopentolate 1 % Ophth Sol 2 ML DRPBTL 1 DROP EYE-LEFT (08:43)
[2025-02-13] MEDS: Furosemide 40 MG/4 ML VIAL IVPUSH (08:43)
--- NOTE | 2025-02-13 10:50 | P.PNCA_ITS ---
Subjective Subjective Date of Service: 02/13/25 Principal diagnosis: Decompensated heart failure Interval history: Patient is feeling a lot better. No significant overnight shortness of breath. Still appears to be anxious. His BNP is trended down nicely. He is tolerating current medication changes. Review of Systems Constitutional: Reports no additional constitutional complaints Physical Exam Vital Signs: Last Vital Signs Temp 98.1 F 02/13/25 07:28 Pulse 56 02/13/25 07:28 Resp 18 02/13/25 07:28 BP 122/58 L 02/13/25 07:28 Pulse Ox 92 02/13/25 07:28 O2 Del Method Room Air 02/13/25 07:28 O2 Flow Rate 1 02/11/25 17:37 BMI result Body Mass Index 23.7 Const General: cooperative, alert and Physically active Nutritional Appearance: average body habitus Orientation/consciousness: patient oriented x3 Limitations: no limitations HEENT Head: Yes normocephalic and Yes atraumatic Neck Neck: Yes trachea midline, Yes supple and Yes no JVD Resp Effort & Inspection: normal respiratory effort Auscultation: clear to auscultation bilaterally Cardio Jugular venous distension: no JVD Palpation: abnormal PMI displaced PMI Rate: regular rate Rhythm: regular rhythm Heart sounds: S1 normal heart sound present, S2 normal heart sound present, no click and Murmur heart sound present systolic GI Auscultation: normal bowel sounds Skin General skin exam: no rashes or lesions noted Neuro General: patient oriented x3 and no focal motor deficits Extrem General: Yes no clubbing, cyanosis or edema Objective Labs and Meds 02/12/25 07:31 02/13/25 07:10 Lab results: Laboratory Results - last 24 hr 02/12/25 02/13/25 07:31 07:10 WBC 10.2 RBC 2.91 L Hgb 11.4 L Hct 33.7 L MCV 115.8 H MCH 39.2 H MCHC 33.8 RDW 17.1 H Plt Count 269 MPV 10.8 Immature Gran % (Auto) 0.9 H Neut % (Auto) 72.8 Lymph % (Auto) 11.6 L [place] % (Auto) 12.1 H Eos % (Auto) 1.7 Baso % (Auto) 0.9 Lymph # (Auto) 1.2 [place] # (Auto) 1.2 Eos # (Auto) 0.2 Baso # (Auto) 0.1 Abs Immat Gran (auto) 0.09 H Absolute Neuts (auto) 7.4 Absolute Nucleated RBC 0.000 Nucleated RBC % (auto) 0.0 Hold Purple Top SEE NOTE Sodium 142 Potassium 3.6 Chloride 104 Carbon Dioxide 29 Anion Gap 13 BUN 27 H Creatinine 1.21 Estim Creat Clear Calc 52.8 Estimated GFR 57 Random Glucose 97 Calcium 8.7 NT-Pro-B Natriuret Pep 1236.3 H Progress Note: A&P Assessment and plan (1) Decompensated heart failure: Status: Acute Assessment and Plan: Decompensated congestive heart failure with prior ischemic cardiomyopathy. Unclear reason for his decompensation. At this point time he is doing better. Can be discharged home. Will need ischemic workup as outpatient this was discussed with him. He understands. For now continue his current therapy with valsartan, metoprolol. Start Lasix 40 mg and Jardiance 10 mg. Eventually plan to switch him to Entresto therapy as outpatient. He wants to follow locally in [place] for convenience. (2) Ischemic cardiomyopathy: Status: Acute Assessment and Plan: Neurohormonal modulation as above. Will set up for follow-up in 7-10 days. Time Spent With Patient Time: Total time managing care of this patient today ____ minutes. Progress Note: Quality Stroke Does the patient have a stroke diagnosis?: No Procedures Date of Service Date of Service: 02/13/25
[2025-02-13] MEDS: 0.9 % Sodium Chloride Flush 3 ML SYRINGE IVFLUSH (11:07)
--- NOTE | 2025-02-13 11:12 | MHC.CM.PN ---
PT REPORTS HE LIVES ALONE SINCE HIS WENT TO LTC AT A SNF HE IS INDEPENDENT WITH CARE AND MOBILITY COPY OF HCP REQUESTED, HE REPORTS HIS SON AND DAUGHTER ARE THE AGENTS HE DOES NOT HAVE A PCP, BROCHURE PROVIDED IMM DELIVERED DCP: HOME VIA FAMILY TRANSPORT
[2025-02-13 11:30] VITALS: BP 107/57; PULSE 65; RESP 18; TEMP 36.8; O2SAT 92
--- NOTE | 2025-02-13 13:11 | P.DS_ITS ---
DS: Providers Provider Date of Service: 02/13/25 Date of admission: 02/11/25 11:02 Date of discharge: 02/13/25 Primary care physician: Unknown Physician Consults: 02/11/25 08:32 ED CARE Team Crisis Consult Stat Comment: Reason for consultation: depression, grief 02/11/25 11:54 Consult to Cardiology Routine Consulting Provider: [facility] [place] [facility] Reason for consultation: CHF 02/12/25 11:55 Consult to Psychiatry Routine Consulting Provider: [facility] [place] Psych Covering Reason for consultation: Extreme anxiety, advise on med management DS: Diagnosis Discharge Diagnosis (1) Decompensated heart failure: Status: Acute (2) Ischemic cardiomyopathy: Status: Acute DS: Summary Hospital Course Hospital Course: Discharge diagnoses: * Acute decompensated heart failure * Coronary artery disease * Anxiety, situational * History of mitral valve insufficiency with dilated left atrium and ventricle * Bilateral moderate pleural effusions * Pulmonary edema * Multifocal pneumonia (radiographic, not clinically supported) Chief Complaint: Shortness of breath History of Present Illness: The patient is an 84-year-old male with a history of coronary artery disease who presented with acute onset shortness of breath. He had recently returned from [place] and was in his usual state of health until the night prior to admission, when he developed restlessness and difficulty sleeping. Upon getting up to use the bathroom, he experienced dyspnea and left-sided chest pressure without radiation. He denied cough, fever, chills, or lower extremity edema. Due to the severity of his symptoms, he was brought to the emergency department. Hospital Course: In the ED, the patient was hypoxic and required 2 L nasal cannula for oxygenation. Labs revealed WBC 12.6, D-dimer 350, and BNP 2520. CTA chest was negative for pulmonary embolism but showed pulmonary edema, multifocal pneumonia, and bilateral moderate pleural effusions, as well as mitral valve insufficiency with dilated left atrium and ventricle. He was started on IV furosemide (Lasix) and IV ceftriaxone and Doxycyline for possible pneumonia. However, the patient remained afebrile, had only mildleukocytosis, and procalcitonin was normal. The abrupt onset of symptoms and rapid improvement with diuresis made pneumonia less likely and acute heart failure the most probable diagnosis, however antibiotics will be continued with Ceftin and Doxycyline for a total of 5 days. Cardiology was consulted and recommended switching Lisinopril to Valsartan, with plans to initiate sacubitril/valsartan (Entresto) in the future. The patient?s symptoms and BNP improved rapidly with diuresis. During his admission, the patient was noted to be anxious due to significant social stressors, including her daughter daughter terminally ill with cancer and on hospice in [place], his ?s advanced dementia in a shelter facility, and his own health concerns. Psychiatry was consulted for medication management. He denied suicidal or homicidal ideation. Discharge Medications (new meds) * Furosemide (Lasix) 40 mg PO daily * Valsartan 80 mg wice daily PO daily (in place of Lisinopril) * Jardiance 10 mg daily * Doxycyline 100 mg PO bid * Cefuroxime 100 mg PO bid Follow-Up Appointments: * Primary care * Cardiology: Condition at Discharge: The patient?s symptoms resolved with diuresis and antibiotics He was stable on room air, hemodynamically stable, and able to ambulate independently. He was discharged in stable condition. Time Attestation Discharge Coordination Time (in mins): 40 Quality: Safe Use of Opioids Does Pt have an Active Cancer Diagnosis on the Problem List?: No Quality: Stroke Does the patient have a stroke diagnosis?: No Physical Exam 2 Vital Signs: Vital Signs: Last Vital Signs Temp 98.2 F 02/13/25 11:30 Pulse 65 02/13/25 11:30 Resp 18 02/13/25 11:30 BP 107/57 L 02/13/25 11:30 Pulse Ox 92 02/13/25 11:30 O2 Del Method Room Air 02/13/25 11:30 O2 Flow Rate 1 02/11/25 17:37 BMI result Body Mass Index 23.7 DS: Data Data Completed and Pending Labs on day of discharge: Laboratory Results - last 24 hr 02/12/25 02/13/25 07:31 07:10 WBC 10.2 RBC 2.91 L Hgb 11.4 L Hct 33.7 L MCV 115.8 H MCH 39.2 H MCHC 33.8 RDW 17.1 H Plt Count 269 MPV 10.8 Immature Gran % (Auto) 0.9 H Neut % (Auto) 72.8 Lymph % (Auto) 11.6 L [place] % (Auto) 12.1 H Eos % (Auto) 1.7 Baso % (Auto) 0.9 Lymph # (Auto) 1.2 [place] # (Auto) 1.2 Eos # (Auto) 0.2 Baso # (Auto) 0.1 Abs Immat Gran (auto) 0.09 H Absolute Neuts (auto) 7.4 Absolute Nucleated RBC 0.000 Nucleated RBC % (auto) 0.0 Hold Purple Top SEE NOTE Sodium 142 Potassium 3.6 Chloride 104 Carbon Dioxide 29 Anion Gap 13 BUN 27 H Creatinine 1.21 Estim Creat Clear Calc 52.8 Estimated GFR 57 Random Glucose 97 Calcium 8.7 NT-Pro-B Natriuret Pep 1236.3 H Preliminary micro results at discharge 02/11/25 09:59 Blood Culture - Preliminary Blood - Venous No growth after 48 hours. 02/11/25 09:58 Blood Culture - Preliminary Blood - Venous No growth after 48 hours. Discharge Plan Discharge Anticipated Discharge Date/Time: 02/13/25 13:19 Patient Disposition: Home Health Service Discharge Diagnosis: Ischemic cardiomyopathy, acute systolic heart failure, depression Referrals: Physician,Unknown J [Primary Care Provider, Medical] - 1 Week Discharge Medications: New valsartan 80 mg tablet 80 mg PO BID Qty: 160 0RF cefuroxime axetil 500 mg tablet 500 mg PO BID 3 Days Qty: 6 0RF doxycycline monohydrate 100 mg tablet 100 mg PO BID Qty: 6 0RF furosemide [Lasix] 40 mg tablet 40 mg PO DAILY Qty: 90 0RF Continued latanoprost 0.005 % drops 1 drp ophthalmic-Left DAILY metoprolol tartrate 100 mg tablet 50 mg PO BEDTIME dorzolamide-timolol 22.3-6.8 mg/mL drops 1 drp ophthalmic-Left BID mexiletine 200 mg capsule 200 mg PO BID lactulose 10 gram/15 mL solution 30 ml PO DAILY aspirin [Aspir-81] 81 mg Tablet,Delayed Release (Dr/Ec) 81 mg PO DAILY metoprolol tartrate 100 mg tablet 100 mg PO DAILY atorvastatin 80 mg tablet 80 mg PO BEDTIME cyclopentolate 1 % drops 1 drp ophthalmic-Left DAILY Discontinued lisinopril 20 mg tablet 20 mg PO BID Discharge Orders: Discharge Order (Routine); Ordered 02/13/25 Ordered By: Derrell Nazario Diet: Advance to usual diet Activity on Discharge: As tolerated Stand Alone Forms: Patient Portal Discharge page Print Language: Macedonian Care Plan Goals: recovery from acute heart failure with shortness of breath Health Concerns: heart failure depression and anxiety Plan of Treatment: Take Lasix and jardiance as directed and follow up with your heart doctor follow up with your primary care doctor in a week avoid drinking too much water, no more 1200 cc a day check your weight daily, and your weight goes up by 2 Ib in a day, call your doctor stop taking Lisinopril, it is being replaced by Valsartan 80 mg twice daily Take Cefuroxime and doxycyline for pneumonia Visiting nurses will see you Follow up with your heart doctor Assessment: see above
--- NOTE | 2025-02-13 13:58 | MHC.CM.PN ---
Addendum entered by Nehal Erazo 02/13/25 15:32: CM MET WITH PT TO CLARIFY PCP INFORMATION PT REPORTS DR LIANG AT [facility] RETIRED AND THEY CHANGED FROM [facility] TO A NEW NAME HE SAYS HE WENT THERE TO SEE IF HE WOULD HAVE A NEW PROVIDER AND THEY TOLD HIM NO, THE PROVIDER WHO HAD PLANNED TO TAKE OVER CHANGED HIS MIND. PT STATES HE DOES NOT FEEL READY FOR VNA ANYWAY THOUGH BECAUSE HE HAS TOO MUCH GOING ON HE SAYS HE IS WAITING FOR AN INSURANCE CHANGE IN THE NEW YEAR AND WILL HAVE A PCP ONCE THE NEW INSURANCE STARTS HE UNDERSTANDS ONCE HE OBTAINS A PCP THEY CAN ARRANGE FOR A VNA Original Note: PT CLEARED TO [place] [facility] TODAY WITH HOME HEALTH SERVICES HOWEVER DOES NOT HAVE A PCP SO IS NOT ELIGIBLE FOR SERVICES FAMILY WILL TRANSPORT
--- NOTE | 2025-02-13 14:26 | P.F2F_ITS ---
Service Date Service Date: 02/13/25 Encounter Date of encounter: 02/13/25 Reasons for Services Signs and symptoms assessed: shortness of breath, pneumonia and chf Reason for retirement: CV/CP assess and/or care, medication management, medication treatment and teach disease management Homebound: Leaving the home is medically contraindicated at this time without the asist of a device and/or another person due th the listed conditions above and below. Reason homebound: shortness of breath with minimal effort and weakness related to hospital stay Homebound supporting statement: Due to his advanced age, chronic CHF, and recent acute exacerbation, the patient is homebound. His condition restricts his ability to safely leave home except for necessary medical care. Home health services are medically necessary to monitor and manage his heart failure and prevent further hospitalizations. Certification: Based on the above findings, I certify that this patient is confined to the home and needs intermittent retirement care, physical therapy and/or speech therapy, or continues to need occupational therapy. The patient is under my care, and I have initiated the establishment of the plan of care. The patient will be followed by a physician who will periodically review the plan of care. Time Spent With Patient Time: Total time managing care of this patient today ____ minutes.
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
[2025-02-13 16:00] VITALS: BP 123/65; PULSE 71; RESP 18; TEMP 36.6; O2SAT 92
== END 2025-02-13 19:01 | disposition home health service (06) | DRG 291 ==
LOC: HO.ED 10:45 → HO.EDOVER 11:05 → HO.IMC 15:58
PROVIDERS: Physician Assistant; Admitting Provider Physician Assistant Medical; Emergency Provider Emergency Medicine; Visit Provider Internal Medicine
DX: I11.0 Hypertensive heart disease with heart failure (principal); I50.23 Acute on chronic systolic (congestive) heart failure; J18.9 Pneumonia, unspecified organism; J96.01 Acute respiratory failure with hypoxia; J91.8 Pleural effusion in other conditions classified elsewhere; I25.10 Atherosclerotic heart disease of native coronary artery without angina pectoris; F41.9 Anxiety disorder, unspecified; I25.5 Ischemic cardiomyopathy; Z20.822 Contact with and (suspected) exposure to COVID-19; Z95.810 Presence of automatic (implantable) cardiac defibrillator; Z79.82 Long term (current) use of aspirin; Z79.899 Other long term (current) drug therapy
CPT/HCPCS: 36415; 71045; 71275; 80048; 80053; 81003; 83605; 83735; 83880; 84145; 84484; 85025; 85379; 87040; 87502; 87633; 87635; 93005; 93306; 99285; J0696; J1271; J1650; J1938; Q9957; Q9967

== ENCOUNTER → 2025-02-11 08:30 | Outpatient (BNV) | payer MEDICARE, SELFPAY | PROVIDERS: Emergency Provider Emergency Medicine; Visit Provider Radiology Diagnostic Radiology | DX: J81.0 Acute pulmonary edema (principal); J90 Pleural effusion, not elsewhere classified; J18.9 Pneumonia, unspecified organism; I77.810 Thoracic aortic ectasia; I25.10 Atherosclerotic heart disease of native coronary artery without angina pectoris; J84.9 Interstitial pulmonary disease, unspecified | CPT/HCPCS: 71045; 71275 ==

== ENCOUNTER → 2025-02-11 09:28 | Outpatient (BNV) | payer MEDICARE, SELFPAY | PROVIDERS: Admitting Provider Physician Assistant Medical; Emergency Provider Emergency Medicine; Visit Provider Internal Medicine Cardiovascular Disease | DX: I50.9 Heart failure, unspecified (principal); I51.7 Cardiomegaly; R00.1 Bradycardia, unspecified | CPT/HCPCS: 93010; 93306 ==

== ENCOUNTER → 2025-02-11 11:02 | Outpatient (BNV) | payer MEDICARE, SELFPAY | PROVIDERS: Admitting Provider Physician Assistant Medical; Emergency Provider Emergency Medicine; Visit Provider Internal Medicine | DX: F32.A Depression, unspecified (principal); I50.9 Heart failure, unspecified; R06.02 Shortness of breath | CPT/HCPCS: 99232; G0180 ==

== ENCOUNTER → 2025-02-11 11:02 | Outpatient (BNV) | payer MEDICARE, SELFPAY | PROVIDERS: Admitting Provider Physician Assistant Medical; Emergency Provider Emergency Medicine; Visit Provider Psychiatry & Neurology Psychiatry | DX: F41.1 Generalized anxiety disorder (principal); F41.0 Panic disorder [episodic paroxysmal anxiety] | CPT/HCPCS: 99222 ==

== ENCOUNTER → 2025-02-11 11:02 | Outpatient (BNV) | payer MEDICARE, SELFPAY | PROVIDERS: Admitting Provider Physician Assistant Medical; Emergency Provider Emergency Medicine; Visit Provider Internal Medicine Cardiovascular Disease | DX: I50.9 Heart failure, unspecified (principal); I25.5 Ischemic cardiomyopathy | CPT/HCPCS: 99233 ==